=== PATIENT | female | born 1980 | race Caucasian/White ===

== ENCOUNTER 2016-11-24 08:04 | Emergency (ER) | payer OTHER ==
[2016-11-24 08:13] VITALS: BP 124/75; BMI 39.2
--- NOTE | 2016-11-24 08:39 | DR.GENAD ---
HPI - PCP Primary Care Physician: kimber das - HPI Comment HPI Comment: PATIENT IS WEAK, DRAIN OF ENERGY DIZZY. NO FEVER OR DYSURIA. - Complaint/Symptoms Chief Complaint Doctors Comments: ABDOMINAL PAIN, NAUSEA, VOMITING TIMES ON DAY. Chief Complaint:: vomiting, weak since yesterday - Nurses notes reviewed Nurses Notes Review: Yes - Mode of Arrival Mode of Arrival: Ambulatory - Timing Onset of Chief Complaint: 11/23/16 Came on: Suddenly - Duration Duration: Constant Duration: Days - Severity Severity: Moderate PMH - PMH Past Medical History: No Past Surgical History: Yes Surgical History: Appendectomy, Cholecystectomy, Tonsillectomy - Family History History of Family Medical Conditions: Yes Family Medical History: Hypertension - Social History Does patient currently use any type of tobacco product: No Have you used tobacco products in the last 12 months: No Type of Tobacco Use: None Does any household member use tobacco: No Alcohol Use: None Do you use any recreational Drugs:: No Lives With: Family Lives Where: Home - infectious screening In the last 2 months have you had wt loss of >10#?: NO Have you had fever, night sweats or hemotysis?: No Have you traveled outside the country in the last 6 months?: No Isolation: Standard ROS - Review of Systems Constitutional: No Symptoms Reported Eyes: No Symptoms Reported ENTM: No Symptoms Reported Respiratoy: No Symptoms Reported Cardiovascular: No Symptoms Reported Gastrointestinal/Abdominal: Abdominal Pain, Nausea, Vomiting Genitourinary: No Symptoms Reported Neurological: No Symptoms Reported Musculoskeletal: No Symptoms Reported Integumentary: Dryness Hematologic/Lymphatic: No Symptoms Reported Endocrine: No Symptoms Reported All Other Systems: Reviewed and Negative PE - Vital Signs Vitals: Temperature 98.4 F Pulse Rate 71 Respiratory Rate 16 Blood Pressure 124/75 O2 Sat by Pulse Oximetry 100 - General Limitations: No Limitations General Appearance: Alert - Head Head Exam: Normal Inspection - Eyes Eye exam: Normal Appearance - ENT ENT Exam: Normal External Ear Exam External Ear Exam: Normal External Inspection TM/Canal Exam: Bilateral Normal Nose Exam: Normal Nose Exam Mouth Exam: Normal Inspection Throat Exam: Normal Inspection - Neck Neck Exam: Normal Inspection - Chest Chest Inspection: Symmetric Chest Wall Rise - Respiratory Respiratory Exam: Normal Lung Sounds Bilat Respiratory Exam: Bilateral Clear to Auscultation - Cardiovascular Cardiovascular Exam: Regular Rate, Normal Rhythm, Normal Heart Sounds - Abdominal Exam Abdominal Exam: Normal Bowel Sounds, Soft, Tenderness Abdominal Tenderness: Diffuse, Moderate - Extremities Extremities Exam: Normal Inspection - Back Back Exam: Normal Inspection - Neurologic Neurological Exam: Alert, Oriented X3 - Psychiatric Psychiatric Exam: Anxious - Skin Skin Exam: Dry MDM - Differential Diagnosis Differential Diagnosis: ABDOMINAL PAIN, DEHYDRATION, GASTROENTERITIS, UTI Course - Treatment Treatment: SEE ORDERS. - Education/Counseling Education/Counseling: Patient, Education Educated On: Treatment, Diagnosis, Needs for Follow Up ROR - Labs Reviewed Laboratory Results Reviewed?: Yes Result Diagrams: 11/24/16 08:57 11/24/16 08:57 Laboratory: WBC 10.4 X10^3/uL (3.6-10.0) H 11/24/16 08:57 RBC 4.86 X10^6/uL (3.5-5.4) 11/24/16 08:57 Hgb 13.6 g/dL (12.0-16.0) 11/24/16 08:57 Hct 40.9 % (36.0-47.0) 11/24/16 08:57 MCV 84.3 fL (80.0-100.0) 11/24/16 08:57 MCH 28.1 pg (27.0-34.0) 11/24/16 08:57 MCHC 33.3 g/dL (33.0-35.0) 11/24/16 08:57 RDW 13.7 % (11.6-16.5) 11/24/16 08:57 Plt Count 189 X10^3/uL (150.0-450.0) 11/24/16 08:57 MPV 9.2 fL (7.4-11.0) 11/24/16 08:57 Neut % 70.6 % (42.0-75.0) 11/24/16 08:57 Lymph % 20.0 % (21.0-51.0) L 11/24/16 08:57 [place] % 6.7 % (0.0-13.0) 11/24/16 08:57 Eos % 2.3 % (0.9-2.9) 11/24/16 08:57 Baso % 0.4 % (0.2-1.0) 11/24/16 08:57 Neut # 7.4 x10^3/uL (2.2-4.8) H 11/24/16 08:57 Lymph # 2.1 X10^3/uL (1.3-2.9) 11/24/16 08:57 [place] # 0.7 x10^3/uL (0.3-0.8) 11/24/16 08:57 Eos # 0.2 x10^3/uL (0.0-0.2) 11/24/16 08:57 Baso # 0.0 X10^3/uL (0.0-0.1) 11/24/16 08:57 Absolute Nucleated RBC 0.0 /100WBC 11/24/16 08:57 Sodium 141 mmol/L (136-145) 11/24/16 08:57 Corrected Sodium TNP 11/24/16 08:57 Potassium 4.0 mmol/L (3.5-5.1) 11/24/16 08:57 Chloride 104 mmol/L (98-107) 11/24/16 08:57 Carbon Dioxide 28.7 mmol/L (21-32) 11/24/16 08:57 BUN 18 mg/dL (7-18) 11/24/16 08:57 Creatinine 0.93 mg/dL (0.55-1.02) 11/24/16 08:57 Est GFR (MDRD) Af Amer > 60 (>60) 11/24/16 08:57 Est GFR (MDRD) Non-Af > 60 (>60) 11/24/16 08:57 Glucose 90 mg/dL (65-99) 11/24/16 08:57 Calcium 8.5 mg/dL (8.5-10.1) 11/24/16 08:57 Corrected Calcium TNP 11/24/16 08:57 Total Bilirubin 0.30 mg/dL (0.2-1.0) 11/24/16 08:57 AST 17 Units/L (15-37) 11/24/16 08:57 ALT 30 Units/L (12-78) 11/24/16 08:57 Alkaline Phosphatase 51 Units/L (46-116) 11/24/16 08:57 Total Protein 6.9 g/dL (6.4-8.2) 11/24/16 08:57 Albumin 3.6 g/dL (3.4-5.0) 11/24/16 08:57 Globulin 3.3 g/dL (2.5-4.5) 11/24/16 08:57 Albumin/Globulin Ratio 1.1 Ratio (1.1-2.1) 11/24/16 08:57 Amylase 46 Units/L (25-115) 11/24/16 08:57 Lipase 110 Units/L (73-393) 11/24/16 08:57 HCG, Qual Negative <10 mIU/mL 11/24/16 08:57 Specimen Type Clean catch urine 11/24/16 08:53 Urine Color Yellow (YELLOW) 11/24/16 08:53 Urine Appearance Slightly hazy (CLEAR) 11/24/16 08:53 Urine pH 5.0 (5.0 - 8.0) 11/24/16 08:53 Ur Specific [place] 1.015 (1.000-1.030) 11/24/16 08:53 Urine Protein Negative (NEGATIVE) 11/24/16 08:53 Urine Glucose (UA) Negative (NEGATIVE) 11/24/16 08:53 Urine Ketones Negative (NEGATIVE) 11/24/16 08:53 Urine Occult Blood 2+ (NEGATIVE) 11/24/16 08:53 Urine Nitrite Negative (NEGATIVE) 11/24/16 08:53 Urine Bilirubin Negative (NEGATIVE) 11/24/16 08:53 Urine Urobilinogen Normal (NORMAL) 11/24/16 08:53 Ur Leukocyte Esterase Negative (NEGATIVE) 11/24/16 08:53 Urine RBC 0-3 /HPF (NEGATIVE) 11/24/16 08:53 Urine WBC 2-5 /HPF (NEGATIVE) 11/24/16 08:53 Ur Squamous Epith Cells Moderate /HPF (NEGATIVE) 11/24/16 08:53 Urine Bacteria Trace /HPF (NEGATIVE) 11/24/16 08:53 Ur Culture Indicated? No/not indicated 11/24/16 08:53 - XRAY XRAY Interpreted by: Radiologist XRAY Findings: DISCUSS REPORT WITH PATIENT. - Diagnosis Discharge Problem: Gastroenteritis, Dehydration - Discharge Plan Disposition: HOME, SELF-CARE Condition: Stable Prescriptions: Dicyclomine HCl [Bentyl tab 20 mg] 20 mg PO TID PRN #15 tab PRN Reason: Ondansetron HCl [Zofran Tab 4 mg] 4 mg PO Q8H PRN #12 tab PRN Reason: Nausea/Vomiting - Follow ups/Referrals Follow ups/Referrals: KIMBER DAS [Primary Care Provider] - 2 days - Instructions Instructions: Viral Gastroenteritis, Adult, Caoo-[id number], Dehydration, Adult, [id number] Additional Instructions: RETURN TO ED IF WORSE.
[2016-11-24] MEDS ORDERED: ZOFRAN INJ 4 MG VIAL IVP ONE (08:40)
[2016-11-24] MEDS ORDERED: NS 1000 ML 1,000 ML IV ONE (08:40)
[2016-11-24] MEDS ORDERED: ZOFRAN INJ 4 MG VIAL ONE (08:49)
[2016-11-24] MEDS ORDERED: NS 1000 ML 1,000 ML ONE (08:49)
[2016-11-24 09:12] LABS: BASOPHILS % (AUTO) 0.4 % (0.2-1.0); EOSINOPHILS # (AUTO) 0.2 x10^3/uL (0.0-0.2); EOSINOPHILS % (AUTO) 2.3 % (0.9-2.9); HEMATOCRIT 40.9 % (36.0-47.0); HEMOGLOBIN 13.6 g/dL (12.0-16.0); LYMPHOCYTES # (AUTO) 2.1 X10^3/uL (1.3-2.9); MEAN CORPUSCULAR HEMOGLOBIN 28.1 pg (27.0-34.0); MEAN CORPUSCULAR HGB CONC 33.3 g/dL (33.0-35.0); MEAN CORPUSCULAR VOLUME 84.3 fL (80.0-100.0); MEAN PLATELET VOLUME 9.2 fL (7.4-11.0); MONOCYTES # (AUTO) 0.7 x10^3/uL (0.3-0.8); MONOCYTES % (AUTO) 6.7 % (0.0-13.0); NEUTROPHILS # (AUTO) 7.4 x10^3/uL (2.2-4.8); NEUTROPHILS % (AUTO) 70.6 % (42.0-75.0); PLATELET COUNT 189 X10^3/uL (150.0-450.0); RED BLOOD COUNT 4.86 X10^6/uL (3.5-5.4); RED CELL DISTRIBUTION WIDTH 13.7 % (11.6-16.5); WHITE BLOOD COUNT 10.4 X10^3/uL (3.6-10.0)
[2016-11-24 09:15] LABS: BILIRUBIN,URINE NEGATIVE (NEGATIVE); BLOOD/HEMOGLOBIN,URINE 2+ (NEGATIVE); GLUCOSE, URINE NEGATIVE (NEGATIVE); KETONES,URINE NEGATIVE (NEGATIVE); LEUKOCYTE ESTERASE ,URINE NEGATIVE (NEGATIVE); NITRITES,URINE NEGATIVE (NEGATIVE); PROTEIN,URINE NEGATIVE (NEGATIVE); UROBILINOGEN,URINE NORMAL (NORMAL)
[2016-11-24 09:18] LABS: ALANINE AMINOTRANSFERASE 30 Units/L (12-78); ALBUMIN 3.6 g/dL (3.4-5.0); ALKALINE PHOSPHATASE 51 Units/L (46-116); AMYLASE 46 Units/L (25-115); ASPARTATE AMINO TRANSFERASE 17 Units/L (15-37); BLOOD UREA NITROGEN 18 mg/dL (7-18); CALCIUM 8.5 mg/dL (8.5-10.1); CARBON DIOXIDE 28.7 mmol/L (21-32); CHLORIDE 104 mmol/L (98-107); CREATININE 0.93 mg/dL (0.55-1.02); GLUCOSE 90 mg/dL (65-99); LIPASE 110 Units/L (73-393); SODIUM 141 mmol/L (136-145); TOTAL PROTEIN 6.9 g/dL (6.4-8.2); eGFR BLACK RACES > 60 (>60); eGFR NON BLACK RACES > 60 (>60)
[2016-11-24 09:23] LABS: APPEARANCE,URINE SLIGHTLY HAZY (CLEAR); COLOR,URINE YELLOW (YELLOW)
[2016-11-24 09:24] LABS: BACTERIA,URINE TRACE /HPF (NEGATIVE); RBC,URINE 0-3 /HPF (NEGATIVE); SQUAMOUS EPITHELIAL CELL,UR MODERATE /HPF (NEGATIVE)
[2016-11-24 09:25] LABS: SERUM PREGNANCY TEST, QUAL NEGATIVE <10 mIU/mL
--- NOTE | 2016-11-24 10:25 | RAD ---
HISTORY: Abdominal pain common nausea, vomiting Study: Acute abdominal series Comparison: None Findings: The trachea is midline. The cardiac silhouette is unremarkable. The lungs are clear without focal infiltrate or effusion. The bony thorax is unremarkable. Flat plate and upright evaluation of the abdomen demonstrates a normal bowel gas pattern. No pneumop eritoneum is identified.. No pathological soft tissue mass or calcification can be observed. The b zuleika structures are grossly intact. IMPRESSION: 1. No acute cardiopulmonary disease. 2. No evidence for acute abdominal pathology identified. Reported By:
== END 2016-11-24 10:25 | disposition home or self-care (01) ==
LOC: ER 08:21
DX: K52.89 Other specified noninfective gastroenteritis and colitis (principal); E86.0 Dehydration
CPT/HCPCS: 36415; 74022; 80053; 81001; 82150; 83690; 84703; 85025; 96365; 96374; 99282; 99283; A4222; J2405

== ENCOUNTER 2017-02-10 08:56 | Emergency (ER) | payer SELFPAY ==
[2017-02-10 09:02] VITALS: BP 127/75; BMI 37.8
--- NOTE | 2017-02-10 09:29 | DR.GENAD ---
HPI - PCP Primary Care Physician: Michelle Gomez - Complaint/Symptoms Chief Complaint Doctors Comments: Nausea, vomiting and diarrhea for 4 days. Chief Complaint:: N/V real weak feels like im going to pass out been sick for three or four days - Nurses notes reviewed Nurses Notes Review: Yes - Source History Provided: Patient - Mode of Arrival Mode of Arrival: Ambulatory - Timing Onset of Chief Complaint: 02/07/17 Came on: Gradually - Duration Duration: Intermittent PMH - PMH Past Medical History: Yes Past Medical History: GERD Past Surgical History: Yes Surgical History: Appendectomy, Cholecystectomy, Tonsillectomy Unable to Obtain Due To: denies: Altered mental status, Dementia, Medical urgency, Intubated - Family History History of Family Medical Conditions: Yes Family Medical History: Hypertension - Social History Does patient currently use any type of tobacco product: No Have you used tobacco products in the last 12 months: No Type of Tobacco Use: None Does any household member use tobacco: No Alcohol Use: None Do you use any recreational Drugs:: No Lives With: Family Lives Where: Home - infectious screening In the last 2 months have you had wt loss of >10#?: NO Have you had fever, night sweats or hemotysis?: No Have you traveled outside the country in the last 6 months?: No Isolation: Standard ROS - Review of Systems Constitutional: Weakness Eyes: No Symptoms Reported ENTM: No Symptoms Reported Respiratoy: No Symptoms Reported Cardiovascular: No Symptoms Reported Gastrointestinal/Abdominal: Diarrhea, Nausea, Vomiting Genitourinary: No Symptoms Reported Neurological: No Symptoms Reported Musculoskeletal: No Symptoms Reported Integumentary: No Symptoms Reported Hematologic/Lymphatic: No Symptoms Reported Endocrine: No Symptoms Reported Psychiatric: No Symptoms Reported All Other Systems: Reviewed and Negative PE - Vital Signs Vitals: Temperature 98.1 F Pulse Rate 70 Respiratory Rate 18 Blood Pressure 127/75 O2 Sat by Pulse Oximetry 98 - Head Head Exam: Normal Inspection - Eyes Eye exam: Normal Appearance - ENT ENT Exam: Normal Oropharynx, Normal External Ear Exam, Mucous Membranes Moist. negative: Mucous Membranes Dry, Other External Ear Exam: Normal External Inspection Nose Exam: Normal Nose Exam Mouth Exam: Normal Inspection Throat Exam: Normal Inspection - Neck Neck Exam: Normal Inspection - Chest Chest Inspection: Normal Inspection - Respiratory Respiratory Exam: Normal Lung Sounds Bilat - Cardiovascular Cardiovascular Exam: Regular Rate, Normal Rhythm, Normal Heart Sounds - Abdominal Exam Abdominal Exam: Normal Inspection, Normal Bowel Sounds, Soft, Tenderness (r sided). negative: Distention, Rebound, Rigidity, Dimnished Bowel Sounds, Hyperactive Bowel Sounds, Hypoactive Bowel Sounds, Organomegaly, Trauma, Incision, Ascites, Mass, Bruit, Pulsatile Mass, Hernia Abdominal Tenderness: RUQ, Mild - Extremities Extremities Exam: Normal Inspection - Back Back Exam: Normal Inspection - Neurologic Neurological Exam: Alert, Oriented X3, CN II-XII Intact, Normal Gait - Psychiatric Psychiatric Exam: Normal Affect, Normal Mood - Skin Skin Exam: Warm, Dry, Intact, Normal Color MDM - Differential Diagnosis Differential Diagnosis: gastroenteritis,post cholecystectomy dumping syndrome. ROR - Labs Reviewed Result Diagrams: 02/10/17 09:51 02/10/17 09:51 Laboratory: WBC 7.8 X10^3/uL (3.6-10.0) 02/10/17 09:51 RBC 4.72 X10^6/uL (3.5-5.4) 02/10/17 09:51 Hgb 13.4 g/dL (12.0-16.0) 02/10/17 09:51 Hct 39.7 % (36.0-47.0) 02/10/17 09:51 MCV 84.0 fL (80.0-100.0) 02/10/17 09:51 MCH 28.5 pg (27.0-34.0) 02/10/17 09:51 MCHC 33.9 g/dL (33.0-35.0) 02/10/17 09:51 RDW 13.4 % (11.6-16.5) 02/10/17 09:51 Plt Count 162 X10^3/uL (150.0-450.0) 02/10/17 09:51 MPV 10.0 fL (7.4-11.0) 02/10/17 09:51 Neut % 71.2 % (42.0-75.0) 02/10/17 09:51 Lymph % 21.0 % (21.0-51.0) 02/10/17 09:51 [place] % 6.7 % (0.0-13.0) 02/10/17 09:51 Eos % 0.8 % (0.9-2.9) L 02/10/17 09:51 Baso % 0.3 % (0.2-1.0) 02/10/17 09:51 Neut # 5.6 x10^3/uL (2.2-4.8) H 02/10/17 09:51 Lymph # 1.7 X10^3/uL (1.3-2.9) 02/10/17 09:51 [place] # 0.5 x10^3/uL (0.3-0.8) 02/10/17 09:51 Eos # 0.1 x10^3/uL (0.0-0.2) 02/10/17 09:51 Baso # 0.0 X10^3/uL (0.0-0.1) 02/10/17 09:51 Absolute Nucleated RBC 0.1 /100WBC 02/10/17 09:51 Sodium 144 mmol/L (136-145) 02/10/17 09:51 Corrected Sodium TNP 02/10/17 09:51 Potassium 3.7 mmol/L (3.5-5.1) 02/10/17 09:51 Chloride 107 mmol/L (98-107) 02/10/17 09:51 Carbon Dioxide 30.4 mmol/L (21-32) 02/10/17 09:51 BUN 8 mg/dL (7-18) 02/10/17 09:51 Creatinine 0.98 mg/dL (0.55-1.02) 02/10/17 09:51 Est GFR (MDRD) Af Amer > 60 (>60) 02/10/17 09:51 Est GFR (MDRD) Non-Af > 60 (>60) 02/10/17 09:51 Glucose 97 mg/dL (65-99) 02/10/17 09:51 Calcium 8.3 mg/dL (8.5-10.1) L 02/10/17 09:51 Corrected Calcium TNP 02/10/17 09:51 Total Bilirubin 0.50 mg/dL (0.2-1.0) 02/10/17 09:51 AST 15 Units/L (15-37) 02/10/17 09:51 ALT 19 Units/L (12-78) 02/10/17 09:51 Alkaline Phosphatase 45 Units/L (46-116) L 02/10/17 09:51 Total Protein 6.7 g/dL (6.4-8.2) 02/10/17 09:51 Albumin 3.6 g/dL (3.4-5.0) 02/10/17 09:51 Globulin 3.1 g/dL (2.5-4.5) 02/10/17 09:51 Albumin/Globulin Ratio 1.2 Ratio (1.1-2.1) 02/10/17 09:51 Amylase 31 Units/L (25-115) 02/10/17 09:51 H. pylori IgG Antibody Positive (NEGATIVE) A 02/10/17 09:51 - Diagnosis Discharge Problem: Helicobacter pylori antibody positive, H. pylori duodenitis - Discharge Plan Disposition: 01 HOME, SELF-CARE Condition: Stable - Follow ups/Referrals Follow ups/Referrals: RODRIGO GOMEZ [Primary Care Provider] - 3 days - Instructions Instructions: Gastritis, Adult, [id number], Gastritis, Adult
[2017-02-10] MEDS ORDERED: PROTONIX TAB 40 MG PO ONE ×2 (09:42→10:01)
[2017-02-10] MEDS ORDERED: ZOFRAN TAB 4 MG PO ONE (09:46)
[2017-02-10] MEDS ORDERED: ZOFRAN TAB 4 MG ONE (10:01)
[2017-02-10 10:09] LABS: ALANINE AMINOTRANSFERASE 19 Units/L (12-78); ALBUMIN 3.6 g/dL (3.4-5.0); ALKALINE PHOSPHATASE 45 Units/L (46-116); AMYLASE 31 Units/L (25-115); ASPARTATE AMINO TRANSFERASE 15 Units/L (15-37); BLOOD UREA NITROGEN 8 mg/dL (7-18); CALCIUM 8.3 mg/dL (8.5-10.1); CARBON DIOXIDE 30.4 mmol/L (21-32); CHLORIDE 107 mmol/L (98-107); CREATININE 0.98 mg/dL (0.55-1.02); GLUCOSE 97 mg/dL (65-99); SODIUM 144 mmol/L (136-145); TOTAL PROTEIN 6.7 g/dL (6.4-8.2); eGFR BLACK RACES > 60 (>60); eGFR NON BLACK RACES > 60 (>60)
--- NOTE | 2017-02-10 10:12 | RAD ---
HISTORY: Nausea, vomiting, diarrhea Study: Acute abdominal series Comparison: November 24, 2016 Findings: The trachea is midline. The cardiac silhouette is unremarkable. The lungs are clear without focal infiltrate or effusion. The bony thorax is unremarkable. Flat plate and upright evaluation of the abdomen demonstrates a normal bowel gas pattern. No pneumop eritoneum is identified.. No pathological soft tissue mass or calcification can be observed. The b zuleika structures are grossly intact. The patient appears to be status post ventral hernia repair and c holecystectomy. IMPRESSION: 1. No acute cardiopulmonary disease. 2. No evidence for acute abdominal pathology identified. Reported By:
[2017-02-10 10:14] LABS: BASOPHILS % (AUTO) 0.3 % (0.2-1.0); EOSINOPHILS # (AUTO) 0.1 x10^3/uL (0.0-0.2); EOSINOPHILS % (AUTO) 0.8 % (0.9-2.9); HEMATOCRIT 39.7 % (36.0-47.0); HEMOGLOBIN 13.4 g/dL (12.0-16.0); LYMPHOCYTES # (AUTO) 1.7 X10^3/uL (1.3-2.9); MEAN CORPUSCULAR HEMOGLOBIN 28.5 pg (27.0-34.0); MEAN CORPUSCULAR HGB CONC 33.9 g/dL (33.0-35.0); MONOCYTES # (AUTO) 0.5 x10^3/uL (0.3-0.8); MONOCYTES % (AUTO) 6.7 % (0.0-13.0); NEUTROPHILS # (AUTO) 5.6 x10^3/uL (2.2-4.8); NEUTROPHILS % (AUTO) 71.2 % (42.0-75.0); PLATELET COUNT 162 X10^3/uL (150.0-450.0); RED BLOOD COUNT 4.72 X10^6/uL (3.5-5.4); RED CELL DISTRIBUTION WIDTH 13.4 % (11.6-16.5); WHITE BLOOD COUNT 7.8 X10^3/uL (3.6-10.0)
== END 2017-02-10 10:41 | disposition home or self-care (01) ==
LOC: ER 09:04
DX: K29.70 Gastritis, unspecified, without bleeding (principal); B96.81 Helicobacter pylori [H. pylori] as the cause of diseases classified elsewhere
CPT/HCPCS: 36415; 74022; 80053; 82150; 85025; 86677; 99282; S0181

== ENCOUNTER 2017-07-29 09:34 | Emergency (ER) | payer SELFPAY ==
[2017-07-29 09:38] VITALS: BP 129/74; BMI 36.2
[2017-07-29 10:05] LABS: BILIRUBIN,URINE NEGATIVE (NEGATIVE); BLOOD/HEMOGLOBIN,URINE 2+ (NEGATIVE); GLUCOSE, URINE NEGATIVE (NEGATIVE); KETONES,URINE NEGATIVE (NEGATIVE); LEUKOCYTE ESTERASE ,URINE NEGATIVE (NEGATIVE); NITRITES,URINE NEGATIVE (NEGATIVE); PROTEIN,URINE NEGATIVE (NEGATIVE); UROBILINOGEN,URINE NORMAL (NORMAL)
[2017-07-29 10:10] LABS: APPEARANCE,URINE CLEAR (CLEAR); BACTERIA,URINE TRACE /HPF (NEGATIVE); COLOR,URINE YELLOW (YELLOW); RBC,URINE 0-2 /HPF (NEGATIVE); SQUAMOUS EPITHELIAL CELL,UR FEW /HPF (NEGATIVE)
[2017-07-29 10:11] LABS: BASOPHILS % (AUTO) 0.3 % (0.2-1.0); EOSINOPHILS # (AUTO) 0.1 x10^3/uL (0.0-0.2); EOSINOPHILS % (AUTO) 0.9 % (0.9-2.9); HEMATOCRIT 40.3 % (36.0-47.0); HEMOGLOBIN 13.5 g/dL (12.0-16.0); LYMPHOCYTES # (AUTO) 1.7 X10^3/uL (1.3-2.9); LYMPHOCYTES % (AUTO) 18.6 % (21.0-51.0); MEAN CORPUSCULAR HEMOGLOBIN 28.1 pg (27.0-34.0); MEAN CORPUSCULAR HGB CONC 33.5 g/dL (33.0-35.0); MEAN CORPUSCULAR VOLUME 83.9 fL (80.0-100.0); MEAN PLATELET VOLUME 9.5 fL (7.4-11.0); MONOCYTES # (AUTO) 0.6 x10^3/uL (0.3-0.8); MONOCYTES % (AUTO) 6.5 % (0.0-13.0); NEUTROPHILS # (AUTO) 6.8 x10^3/uL (2.2-4.8); NEUTROPHILS % (AUTO) 73.7 % (42.0-75.0); PLATELET COUNT 180 X10^3/uL (150.0-450.0); RED BLOOD COUNT 4.81 X10^6/uL (3.5-5.4); RED CELL DISTRIBUTION WIDTH 13.2 % (11.6-16.5); WHITE BLOOD COUNT 9.2 X10^3/uL (3.6-10.0)
--- NOTE | 2017-07-29 10:16 | DR.URINEF ---
HPI - Time Seen Time seen: 09:58 - PCP Primary Care Physician: carlos - Complaint Chief Complaint Doctors Comments: Lt. flank + groin pain since yesterday. Other symptoms include: dysuria, urgency and nausea. She did vomit x 1 today. She denies hematuria. Chief Complaint:: Patient c/o left flank pain with nausea. Patient has urinary urgency and hesitency. Patient states she also has dysuria. 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 - Reviewed Nurses Notes Reviewed: Yes - Source History Provided: Patient - Mode of Arrival Mode of Arrival: Ambulatory - Timing Onset of Chief Complaint: 07/28/17 - Context History of: None - Quality Pain is: Aching - Severity Pain: Moderate - Associated Signs and Symptoms Associated signs and symptoms: Nausea, Vomiting, Flank Pain PMH - PMH Past Medical History: Yes Past Medical History: GERD Past Surgical History: Yes Surgical History: Appendectomy, Cholecystectomy, Tonsillectomy Past Surgical History Comment: Umbilical hernia repair - Family History History of Family Medical Conditions: Yes Family Medical History: Diabetes Mellitus, Hypertension - Social History Does patient currently use any type of tobacco product: No Have you used tobacco products in the last 12 months: No Type of Tobacco Use: None Does any household member use tobacco: No Alcohol Use: None Do you use any recreational Drugs:: No Lives With: Family Lives Where: Home - infectious screening In the last 2 months have you had wt loss of >10#?: NO Have you had fever, night sweats or hemotysis?: No Have you traveled outside the country in the last 6 months?: No Isolation: Standard ROS - Review of Systems Constitutional: No Symptoms Reported Eyes: No Symptoms Reported ENTM: No Symptoms Reported Respiratoy: No Symptoms Reported Cardiovascular: No Symptoms Reported Gastrointestinal/Abdominal: Nausea, Vomiting Genitourinary: Dysuria, Other (Lt. flank pain and urgency.) Neurological: No Symptoms Reported Musculoskeletal: No Symptoms Reported Integumentary: No Symptoms Reported Hematologic/Lymphatic: No Symptoms Reported Endocrine: No Symptoms Reported Psychiatric: No Symptoms Reported All Other Systems: Reviewed and Negative PE - Vital Signs Vitals: Temperature 97.4 F Pulse Rate 79 Respiratory Rate 19 Blood Pressure 129/74 O2 Sat by Pulse Oximetry 98 - General Limitations: No Limitations General Appearance: Alert, In No Apparent Distress - Head Head Exam: Normal Inspection, Atraumatic, Normocephalic - Eyes Eye exam: Normal Appearance - ENT ENT Exam: Normal Exam - Neck Neck Exam: Normal Inspection, Full ROM, Trachea Midline - Chest Chest Inspection: Normal Inspection, Symmetric Chest Wall Rise - Respiratory Respiratory Exam: Normal Lung Sounds Bilat - Cardiovascular Cardiovascular Exam: Regular Rate, Normal Rhythm - Abdominal Exam Abdominal Exam: Normal Inspection, Normal Bowel Sounds, Soft, Tenderness Abdominal Tenderness: LLQ, Suprapubic - Rectal Rectal Exam: Deferred - Genitourinary External Exam: Female: Deferred : Speculum Exam (Female): Deferred - Extremities Extremities Exam: Normal Inspection, Full ROM - Back Back Exam: (L) CVA Tenderness - Neurologic Neurological Exam: Alert, Oriented X3, CN II-XII Intact - Psychiatric Psychiatric Exam: Normal Affect, Normal Mood - Skin Skin Exam: Warm, Dry, Intact ROR - Labs Reviewed Result Diagrams: 07/29/17 10:05 07/29/17 10:05 Laboratory: WBC 9.2 X10^3/uL (3.6-10.0) 07/29/17 10:05 RBC 4.81 X10^6/uL (3.5-5.4) 07/29/17 10:05 Hgb 13.5 g/dL (12.0-16.0) 07/29/17 10:05 Hct 40.3 % (36.0-47.0) 07/29/17 10:05 MCV 83.9 fL (80.0-100.0) 07/29/17 10:05 MCH 28.1 pg (27.0-34.0) 07/29/17 10:05 MCHC 33.5 g/dL (33.0-35.0) 07/29/17 10:05 RDW 13.2 % (11.6-16.5) 07/29/17 10:05 Plt Count 180 X10^3/uL (150.0-450.0) 07/29/17 10:05 MPV 9.5 fL (7.4-11.0) 07/29/17 10:05 Neut % 73.7 % (42.0-75.0) 07/29/17 10:05 Lymph % 18.6 % (21.0-51.0) L 07/29/17 10:05 [place] % 6.5 % (0.0-13.0) 07/29/17 10:05 Eos % 0.9 % (0.9-2.9) 07/29/17 10:05 Baso % 0.3 % (0.2-1.0) 07/29/17 10:05 Neut # 6.8 x10^3/uL (2.2-4.8) H 07/29/17 10:05 Lymph # 1.7 X10^3/uL (1.3-2.9) 07/29/17 10:05 [place] # 0.6 x10^3/uL (0.3-0.8) 07/29/17 10:05 Eos # 0.1 x10^3/uL (0.0-0.2) 07/29/17 10:05 Baso # 0.0 X10^3/uL (0.0-0.1) 07/29/17 10:05 Absolute Nucleated RBC 0.0 /100WBC 07/29/17 10:05 Sodium 141 mmol/L (136-145) 07/29/17 10:05 Corrected Sodium TNP 07/29/17 10:05 Potassium 3.8 mmol/L (3.5-5.1) 07/29/17 10:05 Chloride 105 mmol/L (98-107) 07/29/17 10:05 Carbon Dioxide 29.7 mmol/L (21-32) 07/29/17 10:05 BUN 9 mg/dL (7-18) 07/29/17 10:05 Creatinine 0.90 mg/dL (0.55-1.02) 07/29/17 10:05 Est GFR (MDRD) Af Amer > 60 (>60) 07/29/17 10:05 Est GFR (MDRD) Non-Af > 60 (>60) 07/29/17 10:05 Glucose 98 mg/dL (65-99) 07/29/17 10:05 Calcium 8.5 mg/dL (8.5-10.1) 07/29/17 10:05 Specimen Type Clean catch urine 07/29/17 09:59 Urine Color Yellow (YELLOW) 07/29/17 09:59 Urine Appearance Clear (CLEAR) 07/29/17 09:59 Urine pH 6.0 (5.0 - 8.0) 07/29/17 09:59 Ur Specific [place] 1.015 (1.000-1.030) 07/29/17 09:59 Urine Protein Negative (NEGATIVE) 07/29/17 09:59 Urine Glucose (UA) Negative (NEGATIVE) 07/29/17 09:59 Urine Ketones Negative (NEGATIVE) 07/29/17 09:59 Urine Occult Blood 2+ (NEGATIVE) 07/29/17 09:59 Urine Nitrite Negative (NEGATIVE) 07/29/17 09:59 Urine Bilirubin Negative (NEGATIVE) 07/29/17 09:59 Urine Urobilinogen Normal (NORMAL) 07/29/17 09:59 Ur Leukocyte Esterase Negative (NEGATIVE) 07/29/17 09:59 Urine RBC 0-2 /HPF (NEGATIVE) 07/29/17 09:59 Urine WBC 0-2 /HPF (NEGATIVE) 07/29/17 09:59 Ur Squamous Epith Cells Few /HPF (NEGATIVE) 07/29/17 09:59 Urine Bacteria Trace /HPF (NEGATIVE) 07/29/17 09:59 Ur Culture Indicated? No/not indicated 07/29/17 09:59 - XRAY XRAY Interpreted by: Radiologist (CT Abd/Pelvis: bilateral adnexal cysts ) - Diagnosis Discharge Problem: Flank pain, Adnexal cyst, Pelvic pain - Discharge Plan Disposition: 01 HOME, SELF-CARE Condition: Stable - Follow ups/Referrals Follow ups/Referrals: RAMESH ANDUJAR [Primary Care Provider] - 3 days - Instructions
[2017-07-29] MEDS ORDERED: TORADOL 30 MG VIAL IVP ONE (10:18)
[2017-07-29] MEDS ORDERED: NS 1000 ML 1,000 ML IV ONE (10:18)
[2017-07-29] MEDS ORDERED: NS 1000 ML 1,000 ML ONE (10:20)
[2017-07-29] MEDS ORDERED: TORADOL 30 MG VIAL ONE (10:20)
[2017-07-29 10:25] LABS: BLOOD UREA NITROGEN 9 mg/dL (7-18); CALCIUM 8.5 mg/dL (8.5-10.1); CARBON DIOXIDE 29.7 mmol/L (21-32); CHLORIDE 105 mmol/L (98-107); SODIUM 141 mmol/L (136-145); eGFR BLACK RACES > 60 (>60); eGFR NON BLACK RACES > 60 (>60)
--- NOTE | 2017-07-29 11:47 | CT ---
CT ABDOMEN AND PELVIS WITHOUT CONTRAST CLINICAL HISTORY: 36-year-old female with left flank pain and nausea. COMPARISON: CT abdomen and pelvis 06/25/2016. TECHNIQUE: Multiple contiguous computed tomographic axial images of the abdomen and pelvis were obtai becky without the use of oral or intravenous contrast. Images were reformatted in the coronal and sagit vilma planes. FINDINGS: The lung bases demonstrate no evidence of focal air-space opacification, pleural effusion, pneumothor ax, or suspicious pulmonary nodules. The imaged inferior mediastinum and heart are normal in appeara nce without evidence of pericardial effusion. The liver, pancreas, and spleen are within normal limits for noncontrast imaging. Status post cholecy stectomy. Right adrenal gland is unremarkable. 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 Kidneys are unremarkable. There are no nephroureteral stones or perinephric flu id collections. There is no evidence of hydroureteronephrosis and the ureters run in an unobstructed course to a well distended urinary bladder. The uterus is anteverted and normal in size. Right adnexal cyst measuring 3.7 x 2.6 x 3.7 cm with le ft adnexal cyst measuring 3.5 x 2.2 x 4.1 cm. Adnexa unremarkable otherwise. Vagina and perineum are unremarkable. Scattered pelvic phleboliths. Stable appearance of surgical tacks and abdominal mesh for ventral hernia repair. Status post appende ctomy. The bowel is without obstruction or inflammation and there is no free fluid or free air withi n the peritoneal cavity. There are no pathologically enlarged lymph nodes in the abdomen or pelvis. The arteriovascular structures are within normal limits for a study without contrast. Soft tissues are normal. The osseous structures are intact without fracture or malalignment. IMPRESSION: 1. Bilateral adnexal cysts as described, most likely benign, but may be a source of patient's pain. F ollow-up with [employer]IST. 2. Status post appendectomy and cholecystectomy. 3. No nephroureterolithiasis. 4. No acute intra-abdominal or intrapelvic process. Reported By:
== END 2017-07-29 12:09 | disposition home or self-care (01) ==
LOC: ER 09:49
DX: R10.84 Generalized abdominal pain (principal); N83.201 Unspecified ovarian cyst, right side; R10.2 Pelvic and perineal pain
CPT/HCPCS: 36415; 74176; 80048; 81001; 85025; 96365; 96367; 96374; 99282; 99283; A4222; J1885

== ENCOUNTER 2017-10-10 09:15 | Emergency (ER) | payer SELFPAY ==
[2017-10-10 09:23] VITALS: BP 122/71; BMI 35.9
[2017-10-10 09:43] LABS: BILIRUBIN,URINE NEGATIVE (NEGATIVE); BLOOD/HEMOGLOBIN,URINE 3+ (NEGATIVE); GLUCOSE, URINE NEGATIVE (NEGATIVE); KETONES,URINE NEGATIVE (NEGATIVE); LEUKOCYTE ESTERASE ,URINE 1+ (NEGATIVE); NITRITES,URINE NEGATIVE (NEGATIVE); PROTEIN,URINE NEGATIVE (NEGATIVE); UROBILINOGEN,URINE NORMAL (NORMAL)
--- NOTE | 2017-10-10 09:52 | ED.ABDFE ---
HPI - Time seen Time seen: 09:35 - PCP Primary Care Physician: TYRONE MAHARAJ - Complaint Chief Complaint:: PT C/O BEING AT WORK TODAY AND THAT SHE STARTED HAVING SHARP PAINS TO HER LUQ AND SHE THOUGHT SHE WAS GONNA PASS OUT AND SHE WAS TOLD BY HER BOSS TO COME TO THE ER. ..BR - Source History Provided: Patient - Mode of arrival Mode of Arrival: Ambulatory - Timing Onset of Chief Complaint: 10/10/17 PMH - PMH Past Medical History: No Past Medical History: GERD Past Surgical History: Yes Surgical History: Appendectomy, Cholecystectomy, Tonsillectomy Past Surgical History Comment: UMBELICAL HERNIA . - Family History History of Family Medical Conditions: Yes Family Medical History: Diabetes Mellitus, Hypertension - Social History Does patient currently use any type of tobacco product: No Have you used tobacco products in the last 12 months: No Type of Tobacco Use: None Does any household member use tobacco: No Alcohol Use: None Do you use any recreational Drugs:: No Lives With: Family Lives Where: Home - infectious screening In the last 2 months have you had wt loss of >10#?: NO Have you had fever, night sweats or hemotysis?: No Have you traveled outside the country in the last 6 months?: No Isolation: Standard ROS - Review of Systems Eyes: No Symptoms Reported ENTM: No Symptoms Reported Respiratoy: No Symptoms Reported Cardiovascular: No Symptoms Reported Gastrointestinal/Abdominal: No Symptoms Reported Genitourinary: No Symptoms Reported Neurological: Headache Musculoskeletal: No Symptoms Reported Integumentary: No Symptoms Reported Hematologic/Lymphatic: No Symptoms Reported Endocrine: No Symptoms Reported Psychiatric: No Symptoms Reported All Other Systems: Reviewed and Negative PE - Vital Signs Vitals: Temperature 97.7 F Pulse Rate 74 Respiratory Rate 20 Blood Pressure 122/71 O2 Sat by Pulse Oximetry 99 - General Limitations: No Limitations General Appearance: Alert, In No Apparent Distress - Head Head Exam: Normal Inspection, Atraumatic - Eyes Eye exam: Normal Appearance, PERRL, EOMI - ENT ENT Exam: Normal Exam - Neck Neck Exam: Normal Inspection, Full ROM - Chest Chest Inspection: Normal Inspection - Respiratory Respiratory Exam: Normal Lung Sounds Bilat Respiratory Exam: Bilateral Clear to Auscultation - Cardiovascular Cardiovascular Exam: Regular Rate, Normal Rhythm - Abdominal Exam Abdominal Exam: Normal Inspection Abdominal Tenderness: negative: RUQ, RLQ, LUQ, LLQ, Epigastrium, Suprapubic, Diffuse, Mild, Moderate, Severe, Other - Rectal Rectal Exam: Deferred - Back Back Exam: Normal Inspection - Extremeties Extremities Exam: Normal Inspection, Full ROM - External Exam: Female: Deferred : Speculum Exam (Female): Deferred : Bimanual Exam (female): Deferred - Neurologic Neurological Exam: Alert, Oriented X3, CN II-XII Intact - Psychiatric Psychiatric Exam: Normal Affect - Skin Skin Exam: Warm, Dry, Intact Course - Education/Counseling Educated On: Treatment, Diagnosis, Prognosis, Needs for Follow Up ROR - Labs Reviewed Result Diagrams: 10/10/17 09:47 10/10/17 09:47 Laboratory: WBC 8.0 X10^3/uL (3.6-10.0) 10/10/17 09:47 RBC 4.69 X10^6/uL (3.5-5.4) 10/10/17 09:47 Hgb 13.3 g/dL (12.0-16.0) 10/10/17 09:47 Hct 39.0 % (36.0-47.0) 10/10/17 09:47 MCV 83.1 fL (80.0-100.0) 10/10/17 09:47 MCH 28.4 pg (27.0-34.0) 10/10/17 09:47 MCHC 34.2 g/dL (33.0-35.0) 10/10/17 09:47 RDW 13.5 % (11.6-16.5) 10/10/17 09:47 Plt Count 174 X10^3/uL (150.0-450.0) 10/10/17 09:47 MPV 9.8 fL (7.4-11.0) 10/10/17 09:47 Neut % 69.0 % (42.0-75.0) 10/10/17 09:47 Lymph % 22.3 % (21.0-51.0) 10/10/17 09:47 Colbert % 7.0 % (0.0-13.0) 10/10/17 09:47 Eos % 1.3 % (0.9-2.9) 10/10/17 09:47 Baso % 0.4 % (0.2-1.0) 10/10/17 09:47 Neut # 5.6 x10^3/uL (2.2-4.8) H 10/10/17 09:47 Lymph # 1.8 X10^3/uL (1.3-2.9) 10/10/17 09:47 Colbert # 0.6 x10^3/uL (0.3-0.8) 10/10/17 09:47 Eos # 0.1 x10^3/uL (0.0-0.2) 10/10/17 09:47 Baso # 0.0 X10^3/uL (0.0-0.1) 10/10/17 09:47 Absolute Nucleated RBC 0.0 /100WBC 10/10/17 09:47 Sodium 141 mmol/L (136-145) 10/10/17 09:47 Corrected Sodium TNP 10/10/17 09:47 Potassium 4.0 mmol/L (3.5-5.1) 10/10/17 09:47 Chloride 106 mmol/L (98-107) 10/10/17 09:47 Carbon Dioxide 29.5 mmol/L (21-32) 10/10/17 09:47 BUN 16 mg/dL (7-18) 10/10/17 09:47 Creatinine 0.98 mg/dL (0.55-1.02) 10/10/17 09:47 Est GFR (MDRD) Af Amer > 60 (>60) 10/10/17 09:47 Est GFR (MDRD) Non-Af > 60 (>60) 10/10/17 09:47 Glucose 93 mg/dL (65-99) 10/10/17 09:47 Calcium 8.2 mg/dL (8.5-10.1) L 10/10/17 09:47 C-Reactive Protein 3.80 mg/L (0-3.0) H 10/10/17 09:47 Amylase 70 Units/L (25-115) 10/10/17 09:47 Lipase 112 Units/L (73-393) 10/10/17 09:47 HCG, Qual Negative <10 mIU/mL 10/10/17 09:47 Specimen Type Clean catch urine 10/10/17 09:30 Urine Color Yellow (YELLOW) 03/05/18 09:30 Urine Appearance Slightly hazy (CLEAR) 10/10/17 Urine pH 5.0 (5.0 - 8.0) 10/10/17: Ur Specific [place] 1.020 (1.000-1.030) 10/10/17:30 Urine Protein Negative (NEGATIVE) 10/10/17: Urine Glucose (UA) Negative (NEGATIVE) 10/10/17: Urine Ketones Negative (NEGATIVE) 10/10/17 Urine Occult Blood 3+ (NEGATIVE) 10/10/17 Urine Nitrite Negative (NEGATIVE) 10/10/17 Urine Bilirubin Negative (NEGATIVE) 10/10/17 Urine Urobilinogen Normal (NORMAL) 10/10/17 Ur Leukocyte Esterase 1+ (NEGATIVE) 10/10/17 Urine RBC 5-10 /HPF (NONE SEEN) 10/10/17 Urine WBC 2-5 /HPF (NONE SEEN) 10/10/17 Ur Squamous Epith Cells Moderate /HPF (NEGATIVE) 10/10/17 Amorphous Sediment Trace /HPF (NEGATIVE) 10/10/17 Urine Bacteria Trace /HPF (NEGATIVE) 10/10/17 Ur Culture Indicated? No/not indicated 10/10/17 - XRAY XRAY Interpreted by: Radiologist (CT Abd: The liver, pancreas, and spleen are unremarkable in appearance. The patient is status postcholecystectomy. Within the left adrenal gland there is a 3.2cmx2.8cm adrenal adenoma. The right adrenal gland is unremarkable. The patient is status post ventral abdominal wall hernia repair. The appendix is surgically absent. There are no dilated loops of bowel present within the abdomen or pelvis. No free fluid or free aire is visualized within the abdomen or pelvis. No pathologic lymphadenopathy or suspicious mesenteric stranding is appreciated. k The colon is unremarkable. The urinary bladder is unremarkable. The bony structures are intact. Impressipn: No acute intra-abdominal abnormality evident.) - Diagnosis Discharge Problem: Adrenal Ademona Abdominal pain Qualifiers: Abdominal location: left upper quadrant Qualified Code(s): R10.12 - Left upper quadrant pain - Discharge Plan Condition: Stable - Follow ups/Referrals Follow ups/Referrals: RAMESH ANDUJAR [Primary Care Provider] - 3 days - Instructions
[2017-10-10 10:00] LABS: AMORPHOUS SEDIMENT,UR TRACE /HPF (NEGATIVE); APPEARANCE,URINE SLIGHTLY HAZY (CLEAR); BACTERIA,URINE TRACE /HPF (NEGATIVE); COLOR,URINE YELLOW (YELLOW); SQUAMOUS EPITHELIAL CELL,UR MODERATE /HPF (NEGATIVE)
[2017-10-10 10:05] LABS: BASOPHILS % (AUTO) 0.4 % (0.2-1.0); EOSINOPHILS # (AUTO) 0.1 x10^3/uL (0.0-0.2); EOSINOPHILS % (AUTO) 1.3 % (0.9-2.9); HEMOGLOBIN 13.3 g/dL (12.0-16.0); LYMPHOCYTES # (AUTO) 1.8 X10^3/uL (1.3-2.9); LYMPHOCYTES % (AUTO) 22.3 % (21.0-51.0); MEAN CORPUSCULAR HEMOGLOBIN 28.4 pg (27.0-34.0); MEAN CORPUSCULAR HGB CONC 34.2 g/dL (33.0-35.0); MEAN CORPUSCULAR VOLUME 83.1 fL (80.0-100.0); MEAN PLATELET VOLUME 9.8 fL (7.4-11.0); MONOCYTES # (AUTO) 0.6 x10^3/uL (0.3-0.8); NEUTROPHILS # (AUTO) 5.6 x10^3/uL (2.2-4.8); PLATELET COUNT 174 X10^3/uL (150.0-450.0); RED BLOOD COUNT 4.69 X10^6/uL (3.5-5.4); RED CELL DISTRIBUTION WIDTH 13.5 % (11.6-16.5)
[2017-10-10 10:09] LABS: AMYLASE 70 Units/L (25-115); BLOOD UREA NITROGEN 16 mg/dL (7-18); CALCIUM 8.2 mg/dL (8.5-10.1); CARBON DIOXIDE 29.5 mmol/L (21-32); CHLORIDE 106 mmol/L (98-107); CREATININE 0.98 mg/dL (0.55-1.02); LIPASE 112 Units/L (73-393); SODIUM 141 mmol/L (136-145); eGFR BLACK RACES > 60 (>60); eGFR NON BLACK RACES > 60 (>60)
[2017-10-10 10:12] LABS: SERUM PREGNANCY TEST, QUAL NEGATIVE <10 mIU/mL
--- NOTE | 2017-10-10 10:45 | RAD ---
HISTORY: Left upper quadrant pain Study: KUB Comparison: None Findings: The abdominal gas pattern is nonspecific and nonobstructive. No abnormal masses or abnormal calcifica tions are identified. The regional skeleton is intact. The patient appears to be status post ventral hernia repair. IMPRESSION: No significant abnormality identified Reported By:
--- NOTE | 2017-10-10 11:38 | CT ---
HISTORY: Anterior abdominal pain, nausea, near syncope Study: CT abdomen and pelvis without contrast Comparison: 07/29/2017 Technique: Multiple axial images were obtained from the lung bases to the level of the ischial tuberosities with out the administration of IV contrast. Reformatted coronal and sagittal planes were produced as well. Findings: The lung bases are clear. The liver, pancreas, and spleen are unremarkable in appearance. The patient is status postcholecystec delta. Within the left adrenal gland there is a 3.2 cm x 2.8 cm adrenal adenoma. The right adrenal gla nd is unremarkable. The patient is status post ventral abdominal wall hernia repair. The appendix is surgically absent. There are no dilated loops of bowel present within the abdomen or pelvis. No free fluid or free air is visualized within the abdomen or pelvis. No pathologic lymphadenopathy or suspic ious mesenteric stranding is appreciated. The colon is unremarkable. The urinary bladder is unremarka ble. The bony structures are intact. IMPRESSION: 1. No acute intra-abdominal abnormality evident. Reported By:
== END 2017-10-10 12:03 | disposition home or self-care (01) ==
LOC: ER 09:27
DX: D35.02 Benign neoplasm of left adrenal gland (principal); R10.12 Left upper quadrant pain
CPT/HCPCS: 36415; 74018; 74176; 80048; 81001; 82150; 83690; 84703; 85025; 86140; 99282; 99283

== ENCOUNTER 2017-10-13 14:10 | Inpatient (IN) | payer SELFPAY ==
--- NOTE | 2017-10-13 14:33 | DR.CP ---
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 NO FEVER. PATIENT IN ED THIS WEEK FOR ABDOMINAL PAIN AND NEAR SYNCOPAL EPISODE. - Complaint Chief Complaint Doctor Comments: CHEST PAIN SINCE 13:OO PM TODAY. Chief Complaint:: PT C/O HAVING C/P WHILE AT WORK. PT C/O SHARP NAGGING PAINS THAT RADIATED TO HER LEFT ARM ".. PT C/O THAT PAINS STARTED AT 1300.... PT C/O HAVING HX OF CHEST PAINS BUT NOT LIKE THIS .. PT POINTS TO HER MID CHEST.. PT C/ O PAIN A 8 OUT OF 10. - Reviewed Nurses Notes Review: Yes - Source History Provided: Patient - Mode of Arrival Mode of Arrival: Ambulatory - Timing Onset of Chief Complaint: 10/13/17 Came on: Suddenly - Duration Duration: Constant Duration: Hours - Location Location of Chest Pain: Left, Chest Chest Pain Radiation Location: Left Shoulder - Context Onset: With light exertion Cardiac Risk Factors: None PE Risk Factors: None History of: None Prehospital Care: None - Quality Quality: Sharp - Severity Severity: Moderate - Modifying Factors Worsens: Nothing Impoves: Nothing - Associated Signs and Symptoms Associated Signs and Symptoms: Shortness of Breath PMH - PMH Past Medical History: Yes Past Medical History: GERD Past Surgical History: Yes Surgical History: Appendectomy, Cholecystectomy, Tonsillectomy - Family History History of Family Medical Conditions: Yes Family Medical History: Diabetes Mellitus, Hypertension - Social History Does patient currently use any type of tobacco product: No Have you used tobacco products in the last 12 months: No Type of Tobacco Use: None Does any household member use tobacco: No Alcohol Use: None Do you use any recreational Drugs:: No Lives With: Family Lives Where: Home - infectious screening In the last 2 months have you had wt loss of >10#?: NO Have you had fever, night sweats or hemotysis?: No Have you traveled outside the country in the last 6 months?: No Isolation: Standard ROS - Review of Systems Constitutional: Weakness, Fatigue. negative: Chills, Diaphoresis, Fever Eyes: No Symptoms Reported. negative: Eye Pain, Discharge ENTM: No Symptoms Reported. negative: Ear Pain, Nose Discharge, Nose Congestion , Throat Pain Respiratoy: Short of Breath. negative: Productive Cough, Non-Productive Cough, Moist Cough, Wheezing, Hemoptysis Gastrointestinal/Abdominal: Nausea. negative: Abdominal Pain Genitourinary: No Symptoms Reported Neurological: Weakness. negative: Headache, Dizziness Musculoskeletal: No Symptoms Reported Integumentary: No Symptoms Reported Hematologic/Lymphatic: No Symptoms Reported Endocrine: No Symptoms Reported All Other Systems: Reviewed and Negative PE - Vitals Vitals: Temperature 98.5 F Pulse Rate [Left] 75 Pulse Rate 79 Respiratory Rate 20 Blood Pressure [Right Arm] 115/67 Blood Pressure 120/70 O2 Sat by Pulse Oximetry 100 - General Limitations: No Limitations General Appearance: Alert - Head Head Exam: Normal Inspection - Eyes Eye exam: Normal Appearance - ENT ENT Exam: Normal External Ear Exam - Chest Chest Inspection: Symmetric Chest Wall Rise - Respiratory Respiratory Exam: Normal Lung Sounds Bilat Respiratory Exam: Bilateral Clear to Auscultation - Cardiovascular Cardiovascular Exam: Regular Rate, Normal Rhythm, Normal Heart Sounds Pulse: Normal Edema: Normal - Abdominal Exam Abdominal Exam: Normal Bowel Sounds, Soft. negative: Tenderness - Extremities Extremities Exam: Normal Inspection - Back Back Exam: Normal Inspection - Neurologic Neurological Exam: Alert, Oriented X3 - Psychiatric Psychiatric Exam: Normal Affect, Normal Mood - Skin Skin Exam: Normal Color MDM - Additional Information Additional Information Obtained From: Family - Differential Diagnosis Differential Diagnosis: Angina, Chest Wall Pain, Costochondritis, Esophageal Reflux/Spasm, Gastritis, Myocardial Infarction, Pericarditis, Pleuritis, Pancreatitis, Pneumonia, Pneumothorax, Pulmonary Embolus Course - Treatment Treatment: SEE ORDERS. S/L NTG IN ED. PAIN RESOLVED. - Consultation Consultation Comments: DISCUSS PATIENT WITH DR. CRUZ. HE WILL ADMIT PATIENT. - Education/Counseling Education/Counseling: Patient, Family, Education Educated On: Treatment, Diagnosis, Needs for Follow Up ROR - Labs Reviewed Laboratory Results Reviewed?: Yes Result Diagrams: 10/13/17 14:30 10/13/17 14:30 Laboratory: WBC 9.7 X10^3/uL (3.6-10.0) 10/13/17 14:30 RBC 4.88 X10^6/uL (3.5-5.4) 10/13/17 14:30 Hgb 13.8 g/dL (12.0-16.0) 10/13/17 14:30 Hct 40.5 % (36.0-47.0) 10/13/17 14:30 MCV 83.1 fL (80.0-100.0) 10/13/17 14:30 MCH 28.3 pg (27.0-34.0) 10/13/17 14:30 MCHC 34.1 g/dL (33.0-35.0) 10/13/17 14:30 RDW 13.7 % (11.6-16.5) 10/13/17 14:30 Plt Count 199 X10^3/uL (150.0-450.0) 10/13/17 14:30 MPV 9.4 fL (7.4-11.0) 10/13/17 14:30 Neut % 69.6 % (42.0-75.0) 10/13/17 14:30 Lymph % 22.9 % (21.0-51.0) 10/13/17 14:30 [place] % 6.0 % (0.0-13.0) 10/13/17 14:30 Eos % 1.0 % (0.9-2.9) 10/13/17 14:30 Baso % 0.5 % (0.2-1.0) 10/13/17 14:30 Neut # 6.8 x10^3/uL (2.2-4.8) H 10/13/17 14:30 Lymph # 2.2 X10^3/uL (1.3-2.9) 10/13/17 14:30 [place] # 0.6 x10^3/uL (0.3-0.8) 10/13/17 14:30 Eos # 0.1 x10^3/uL (0.0-0.2) 10/13/17 14:30 Baso # 0.0 X10^3/uL (0.0-0.1) 10/13/17 14:30 Absolute Nucleated RBC 0.0 /100WBC 10/13/17 14:30 D-Dimer < 100 ng/mL (0-400) 10/13/17 14:30 Sodium 140 mmol/L (136-145) 10/13/17 14:30 Corrected Sodium TNP 10/13/17 14:30 Potassium 3.5 mmol/L (3.5-5.1) 10/13/17 14:30 Chloride 102 mmol/L (98-107) 10/13/17 14:30 Carbon Dioxide 27.6 mmol/L (21-32) 10/13/17 14:30 BUN 15 mg/dL (7-18) 10/13/17 14:30 Creatinine 1.07 mg/dL (0.55-1.02) H 10/13/17 14:30 Est GFR (MDRD) Af Amer > 60 (>60) 10/13/17 14:30 Est GFR (MDRD) Non-Af > 60 (>60) 10/13/17 14:30 Glucose 89 mg/dL (65-99) 10/13/17 14:30 Calcium 8.2 mg/dL (8.5-10.1) L 10/13/17 14:30 Corrected Calcium TNP 10/13/17 14:30 Total Bilirubin 0.30 mg/dL (0.2-1.0) 10/13/17 14:30 AST 15 Units/L (15-37) 10/13/17 14:30 ALT 22 Units/L (12-78) 10/13/17 14:30 Alkaline Phosphatase 57 Units/L (46-116) 10/13/17 14:30 Creatine Kinase 130 Units/L (26-192) 10/13/17 14:30 CK-MB (CK-2) 1.0 ng/mL (0-4.0) 10/13/17 14:30 CK/CKMB % Calc 0.8 % (<4) 10/13/17 14:30 Troponin I < 0.02 ng/mL (0-1.5) 10/13/17 14:30 Total Protein 7.5 g/dL (6.4-8.2) 10/13/17 14:30 Albumin 4.0 g/dL (3.4-5.0) 10/13/17 14:30 Globulin 3.5 g/dL (2.5-4.5) 10/13/17 14:30 Albumin/Globulin Ratio 1.1 Ratio (1.1-2.1) 10/13/17 14:30 H. pylori IgG Antibody Positive (NEGATIVE) A 10/13/17 14:30 - XRAY XRAY Findings: REPORT DISCUSS WITH PATIENT AND HER FAMILY. - EKG Rhythm: NSR ST: Nonsp (EKG NOTED.) - Diagnosis Discharge Problem: Helicobacter pylori antibody positive Chest pain Qualifiers: Chest pain type: precordial pain Qualified Code(s): R07.2 - Precordial pain - Discharge Plan Disposition: 09 ADMITTED INPATIENT Condition: Stable - Follow ups/Referrals - Instructions
[2017-10-13] MEDS ORDERED: NITROSTAT SL ONE (14:36)
[2017-10-13] MEDS ORDERED: PEPCID 20 MG IV PREMIX* 20 MG/50 ML BAG IV ONE ×2 (14:36→14:37)
[2017-10-13] MEDS ORDERED: ASPIRIN ONE (14:36)
[2017-10-13] MEDS ORDERED: NITROSTAT SL PRN (14:36)
[2017-10-13 14:41] LABS: BASOPHILS % (AUTO) 0.5 % (0.2-1.0); EOSINOPHILS # (AUTO) 0.1 x10^3/uL (0.0-0.2); HEMATOCRIT 40.5 % (36.0-47.0); HEMOGLOBIN 13.8 g/dL (12.0-16.0); LYMPHOCYTES # (AUTO) 2.2 X10^3/uL (1.3-2.9); LYMPHOCYTES % (AUTO) 22.9 % (21.0-51.0); MEAN CORPUSCULAR HEMOGLOBIN 28.3 pg (27.0-34.0); MEAN CORPUSCULAR HGB CONC 34.1 g/dL (33.0-35.0); MEAN CORPUSCULAR VOLUME 83.1 fL (80.0-100.0); MEAN PLATELET VOLUME 9.4 fL (7.4-11.0); MONOCYTES # (AUTO) 0.6 x10^3/uL (0.3-0.8); NEUTROPHILS # (AUTO) 6.8 x10^3/uL (2.2-4.8); NEUTROPHILS % (AUTO) 69.6 % (42.0-75.0); PLATELET COUNT 199 X10^3/uL (150.0-450.0); RED BLOOD COUNT 4.88 X10^6/uL (3.5-5.4); RED CELL DISTRIBUTION WIDTH 13.7 % (11.6-16.5); WHITE BLOOD COUNT 9.7 X10^3/uL (3.6-10.0)
[2017-10-13 14:59] LABS: BLOOD UREA NITROGEN 15 mg/dL (7-18); CALCIUM 8.2 mg/dL (8.5-10.1); CARBON DIOXIDE 27.6 mmol/L (21-32); CHLORIDE 102 mmol/L (98-107); CREATININE 1.07 mg/dL (0.55-1.02); SODIUM 140 mmol/L (136-145); TROPONIN I < 0.02 ng/mL (0-1.5); eGFR BLACK RACES > 60 (>60); eGFR NON BLACK RACES > 60 (>60)
[2017-10-13] MEDS ORDERED: ASPIRIN 81 MG CHEWTAB PO SCH (15:00)
[2017-10-13 15:03] LABS: ALANINE AMINOTRANSFERASE 22 Units/L (12-78); ALKALINE PHOSPHATASE 57 Units/L (46-116); ASPARTATE AMINO TRANSFERASE 15 Units/L (15-37); CKMB % 0.8 % (<4); CREATINE KINASE 130 Units/L (26-192); TOTAL PROTEIN 7.5 g/dL (6.4-8.2)
--- NOTE | 2017-10-13 15:05 | RAD ---
HISTORY: Radiating left-sided chest pain Study: Single-view chest Comparison: February 10, 2017 Findings: The heart is normal. The lungs are clear. Osseous structures are intact. There is no effusion or pneu mothorax. IMPRESSION: Negative chest. Reported By:
[2017-10-13] MEDS: NS 1000 ML 1,000 ML IV SCH (17:44)
[2017-10-13] MEDS: MORPHINE SULFATE INJ 2 MG INJ IVP PRN (19:55)
[2017-10-13] MEDS: PEPCID 20 MG IV PREMIX* 20 MG/50 ML BAG IV SCH (20:11)
[2017-10-13 21:15] LABS: CREATINE KINASE 96 Units/L (26-192); CREATINE KINASE MB < 1.0 ng/mL (0-4.0); TROPONIN I < 0.02 ng/mL (0-1.5)
[2017-10-14 05:28] LABS: BASOPHILS % (AUTO) 0.4 % (0.2-1.0); EOSINOPHILS # (AUTO) 0.1 x10^3/uL (0.0-0.2); EOSINOPHILS % (AUTO) 1.8 % (0.9-2.9); HEMATOCRIT 34.5 % (36.0-47.0); HEMOGLOBIN 11.9 g/dL (12.0-16.0); LYMPHOCYTES # (AUTO) 1.8 X10^3/uL (1.3-2.9); LYMPHOCYTES % (AUTO) 27.4 % (21.0-51.0); MEAN CORPUSCULAR HEMOGLOBIN 28.4 pg (27.0-34.0); MEAN CORPUSCULAR HGB CONC 34.4 g/dL (33.0-35.0); MEAN CORPUSCULAR VOLUME 82.5 fL (80.0-100.0); MEAN PLATELET VOLUME 9.9 fL (7.4-11.0); MONOCYTES # (AUTO) 0.6 x10^3/uL (0.3-0.8); MONOCYTES % (AUTO) 8.7 % (0.0-13.0); NEUTROPHILS % (AUTO) 61.7 % (42.0-75.0); PLATELET COUNT 155 X10^3/uL (150.0-450.0); RED BLOOD COUNT 4.18 X10^6/uL (3.5-5.4); RED CELL DISTRIBUTION WIDTH 13.7 % (11.6-16.5); WHITE BLOOD COUNT 6.5 X10^3/uL (3.6-10.0)
[2017-10-14 05:43] LABS: ALANINE AMINOTRANSFERASE 19 Units/L (12-78); ALBUMIN 3.2 g/dL (3.4-5.0); ALKALINE PHOSPHATASE 41 Units/L (46-116); ASPARTATE AMINO TRANSFERASE 14 Units/L (15-37); BLOOD UREA NITROGEN 15 mg/dL (7-18); CALCIUM 7.7 mg/dL (8.5-10.1); CARBON DIOXIDE 27.1 mmol/L (21-32); CHLORIDE 107 mmol/L (98-107); CHOL/HDL RATIO 4.3 (0.0-5.0); CHOLESTEROL 159 mg/dL (0-200); CKMB % 1.5 % (<4); COR CA(FOR HYPOALB) 8.3 mg/dL (8.5-10.1); CREATINE KINASE 67 Units/L (26-192); CREATINE KINASE MB < 1.0 ng/mL (0-4.0); HDL CHOLESTEROL 37 mg/dL (40-60); MAGNESIUM 2.2 mg/dL (1.7-2.9); SODIUM 143 mmol/L (136-145); TRIGLYCERIDES 66 mg/dL (0-150); TROPONIN I < 0.02 ng/mL (0-1.5); eGFR BLACK RACES > 60 (>60); eGFR NON BLACK RACES > 60 (>60)
[2017-10-14] MEDS: MORPHINE SULFATE INJ 2 MG INJ IVP PRN ×2 (05:47→11:11)
[2017-10-14] MEDS: NS 1000 ML 1,000 ML IV SCH ×2 (05:53→18:49)
[2017-10-14] MEDS: PEPCID 20 MG IV PREMIX* 20 MG/50 ML BAG IV SCH ×2 (08:50→20:01)
[2017-10-14] MEDS: ASPIRIN PO SCH (08:50)
[2017-10-14 09:41] VITALS: BMI 38.7
[2017-10-14] MEDS: PROTONIX INJ 40 MG VIAL IVP SCH ×2 (10:43→20:01)
[2017-10-14] MEDS: ZOFRAN INJ 4 MG VIAL IVP PRN ×2 (11:10→17:25)
[2017-10-15] MEDS: ZOFRAN INJ 4 MG VIAL IVP PRN (01:45)
[2017-10-15] MEDS: NS 1000 ML 1,000 ML IV SCH ×2 (06:01→20:01)
[2017-10-15 06:12] LABS: BASOPHILS % (AUTO) 0.2 % (0.2-1.0); EOSINOPHILS # (AUTO) 0.1 x10^3/uL (0.0-0.2); EOSINOPHILS % (AUTO) 1.6 % (0.9-2.9); HEMATOCRIT 32.9 % (36.0-47.0); HEMOGLOBIN 11.4 g/dL (12.0-16.0); LYMPHOCYTES # (AUTO) 1.1 X10^3/uL (1.3-2.9); LYMPHOCYTES % (AUTO) 20.6 % (21.0-51.0); MEAN CORPUSCULAR HEMOGLOBIN 28.7 pg (27.0-34.0); MEAN CORPUSCULAR HGB CONC 34.6 g/dL (33.0-35.0); MEAN CORPUSCULAR VOLUME 83.1 fL (80.0-100.0); MEAN PLATELET VOLUME 10.3 fL (7.4-11.0); MONOCYTES # (AUTO) 0.4 x10^3/uL (0.3-0.8); NEUTROPHILS # (AUTO) 3.8 x10^3/uL (2.2-4.8); NEUTROPHILS % (AUTO) 70.6 % (42.0-75.0); PLATELET COUNT 134 X10^3/uL (150.0-450.0); RED BLOOD COUNT 3.96 X10^6/uL (3.5-5.4); RED CELL DISTRIBUTION WIDTH 13.6 % (11.6-16.5); WHITE BLOOD COUNT 5.4 X10^3/uL (3.6-10.0)
[2017-10-15 06:41] LABS: ALANINE AMINOTRANSFERASE 655 Units/L (12-78); ALKALINE PHOSPHATASE 65 Units/L (46-116); ASPARTATE AMINO TRANSFERASE 316 Units/L (15-37); BLOOD UREA NITROGEN 11 mg/dL (7-18); CALCIUM 7.5 mg/dL (8.5-10.1); CHLORIDE 108 mmol/L (98-107); COR CA(FOR HYPOALB) 8.3 mg/dL (8.5-10.1); CREATININE 0.98 mg/dL (0.55-1.02); SODIUM 142 mmol/L (136-145); TOTAL PROTEIN 5.8 g/dL (6.4-8.2); eGFR BLACK RACES > 60 (>60); eGFR NON BLACK RACES > 60 (>60)
[2017-10-15] MEDS: PEPCID 20 MG IV PREMIX* 20 MG/50 ML BAG IV SCH ×2 (08:31→20:01)
[2017-10-15] MEDS: ASPIRIN PO SCH (08:31)
[2017-10-15] MEDS: PROTONIX INJ 40 MG VIAL IVP SCH ×2 (08:31→20:02)
[2017-10-15] MEDS ORDERED: LEVSIN/MAALOX/LIDOC VISC PO ONE (09:52)
[2017-10-15 10:06] LABS: AMYLASE 31 Units/L (25-115); LIPASE 89 Units/L (73-393)
[2017-10-15] MEDS: MILK OF MAGNESIA PO SCH ×3 (10:58→20:02)
[2017-10-16] MEDS: MILK OF MAGNESIA PO SCH ×3 (00:08→08:07)
[2017-10-16] MEDS: PREDNISONE TAB 10 MG PO SCH ×3 (01:53→15:25)
[2017-10-16 06:05] LABS: BASOPHILS % (AUTO) 0.2 % (0.2-1.0); EOSINOPHILS # (AUTO) 0.1 x10^3/uL (0.0-0.2); EOSINOPHILS % (AUTO) 0.9 % (0.9-2.9); HEMATOCRIT 34.4 % (36.0-47.0); HEMOGLOBIN 11.6 g/dL (12.0-16.0); LYMPHOCYTES # (AUTO) 1.4 X10^3/uL (1.3-2.9); LYMPHOCYTES % (AUTO) 16.6 % (21.0-51.0); MEAN CORPUSCULAR HEMOGLOBIN 28.4 pg (27.0-34.0); MEAN CORPUSCULAR HGB CONC 33.8 g/dL (33.0-35.0); MEAN PLATELET VOLUME 10.9 fL (7.4-11.0); MONOCYTES # (AUTO) 0.5 x10^3/uL (0.3-0.8); NEUTROPHILS # (AUTO) 6.2 x10^3/uL (2.2-4.8); NEUTROPHILS % (AUTO) 76.3 % (42.0-75.0); PLATELET COUNT 138 X10^3/uL (150.0-450.0); RED BLOOD COUNT 4.09 X10^6/uL (3.5-5.4); RED CELL DISTRIBUTION WIDTH 13.6 % (11.6-16.5); WHITE BLOOD COUNT 8.2 X10^3/uL (3.6-10.0)
[2017-10-16 06:14] LABS: ALANINE AMINOTRANSFERASE 441 Units/L (12-78); ALBUMIN 3.1 g/dL (3.4-5.0); ALKALINE PHOSPHATASE 61 Units/L (46-116); ASPARTATE AMINO TRANSFERASE 117 Units/L (15-37); BLOOD UREA NITROGEN 10 mg/dL (7-18); CALCIUM 7.5 mg/dL (8.5-10.1); CARBON DIOXIDE 28.7 mmol/L (21-32); CHLORIDE 107 mmol/L (98-107); COR CA(FOR HYPOALB) 8.2 mg/dL (8.5-10.1); COR NA(FOR HYPERGLY) 142 mmol/L (136-145); CREATININE 1.02 mg/dL (0.55-1.02); SODIUM 142 mmol/L (136-145); eGFR BLACK RACES > 60 (>60); eGFR NON BLACK RACES > 60 (>60)
[2017-10-16] MEDS: PEPCID 20 MG IV PREMIX* 20 MG/50 ML BAG IV SCH ×2 (08:59→20:05)
[2017-10-16] MEDS: ASPIRIN PO SCH (08:59)
[2017-10-16] MEDS: PROTONIX INJ 40 MG VIAL IVP SCH ×2 (08:59→20:05)
[2017-10-16] MEDS: NS 1000 ML 1,000 ML IV SCH (13:00)
[2017-10-16] MEDS ORDERED: BENADRYL CAP 50 MG PO SCH (15:37)
--- NOTE | 2017-10-16 18:55 | CT ---
HISTORY: ABDOMINAL PAIN. PELVIC PAIN. EXAM: POSTCONTRAST CT EXAMINATION OF THE ABDOMEN AND PELVIS. COMPARISON: ABDOMINOPELVIC CT EXAM DATED 06/25/2016. TECHNIQUE: Axial noncontrast CT images of the abdomen and pelvis were performed following the adminis tration of IV contrast. Findings: The lung bases are clear. The heart is normal in size without pericardial effusion. There i s a stable 3 cm left adrenal gland adenoma, as discussed previously. The pancreas, right adrenal glan d, kidneys bilaterally, spleen, and liver are unremarkable in appearance. The gallbladder has been haider rgically removed. There is no evidence for acute appendicitis, or acute diverticulitis. Prominent ova osmel remain bilateral which can be followed up with pelvic sonography. The uterus is unremarkable, as is the bladder. There is some fluid seen throughout the nondilated colon which would imply a diarrhe al illness or possible gastroenteritis. This can be correlated with patient's clinical presentation. Postop changes seen following a prior umbilical hernia repair without evidence for recurrent hernia d efect or bowel obstruction/strangulation. No free air, bowel wall pneumatosis, or portal venous gas i s seen. No drainable fluid collection or pelvic fluid collection is identified. No acute fracture or destructive lytic bony lesion/process is evident. Impression: 1. Imaging findings suggesting a diarrheal illness or gastroenteritis, as above. 2. Status post prior umbilical hernia surgery repair without evidence for recurrent hernia defect, rebeca wel obstruction, free air, or other acute process observed. 3. Prominent ovaries bilaterally. This can be followed up with pelvic sonography, as stated previousl y. Status post cholecystectomy and presumed appendectomy. 4. No other acute abdominopelvic changes from prior are observed. Reported By:
[2017-10-17] MEDS: NS 1000 ML 1,000 ML IV SCH ×3 (01:37→20:49)
[2017-10-17 04:53] LABS: ALANINE AMINOTRANSFERASE 306 Units/L (12-78); ALBUMIN 3.1 g/dL (3.4-5.0); ALKALINE PHOSPHATASE 61 Units/L (46-116); ASPARTATE AMINO TRANSFERASE 42 Units/L (15-37); BLOOD UREA NITROGEN 13 mg/dL (7-18); CALCIUM 7.8 mg/dL (8.5-10.1); CARBON DIOXIDE 24.9 mmol/L (21-32); CHLORIDE 106 mmol/L (98-107); COR CA(FOR HYPOALB) 8.5 mg/dL (8.5-10.1); COR NA(FOR HYPERGLY) 137 mmol/L (136-145); CREATININE 0.93 mg/dL (0.55-1.02); SODIUM 136 mmol/L (136-145); TOTAL PROTEIN 6.2 g/dL (6.4-8.2); eGFR BLACK RACES > 60 (>60); eGFR NON BLACK RACES > 60 (>60)
[2017-10-17 04:58] LABS: BASOPHILS % (AUTO) 0.1 % (0.2-1.0); HEMATOCRIT 36.6 % (36.0-47.0); HEMOGLOBIN 12.2 g/dL (12.0-16.0); LYMPHOCYTES # (AUTO) 1.7 X10^3/uL (1.3-2.9); MEAN CORPUSCULAR HGB CONC 33.2 g/dL (33.0-35.0); MEAN CORPUSCULAR VOLUME 84.2 fL (80.0-100.0); MEAN PLATELET VOLUME 10.1 fL (7.4-11.0); MONOCYTES # (AUTO) 0.8 x10^3/uL (0.3-0.8); MONOCYTES % (AUTO) 5.3 % (0.0-13.0); NEUTROPHILS % (AUTO) 83.6 % (42.0-75.0); PLATELET COUNT 178 X10^3/uL (150.0-450.0); RED BLOOD COUNT 4.34 X10^6/uL (3.5-5.4); RED CELL DISTRIBUTION WIDTH 13.5 % (11.6-16.5); WHITE BLOOD COUNT 15.6 X10^3/uL (3.6-10.0)
[2017-10-17] MEDS: PEPCID 20 MG IV PREMIX* 20 MG/50 ML BAG IV SCH ×2 (08:44→20:45)
[2017-10-17] MEDS: ASPIRIN PO SCH (08:44)
[2017-10-17] MEDS: PROTONIX INJ 40 MG VIAL IVP SCH ×2 (08:44→20:47)
--- NOTE | 2017-10-17 10:51 | DR.H&P ---
H&P - History & Physical for Day of: H&P Date: 10/13/17 - Chief Complaint Chief Complaint: CHEST PAIN - Allergies Allergies/Adverse Reactions: Allergies Allergy/AdvReac Type Severity Reaction Status Date / Time acetaminophen [From Tylenol] Allergy Verified 10/13/17 15:35 amoxicillin [From Augmentin] Allergy Verified 10/13/17 15:35 azithromycin [From Zithromax] Allergy Verified 10/13/17 15:35 cefaclor [From Ceclor] Allergy Verified 10/13/17 15:35 cephalexin [From Keflex] Allergy Verified 10/13/17 15:35 clarithromycin [From Biaxin] Allergy Verified 10/13/17 15:35 clavulanic acid Allergy Verified 10/13/17 15:35 [From Augmentin] clindamycin Allergy Verified 10/13/17 15:35 hydrocodone [From Vicodin] Allergy Verified 10/13/17 15:35 oxycodone [From Percocet] Allergy Verified 10/13/17 15:35 propoxyphene Allergy Verified 10/13/17 15:35 [From Darvocet-N 100] sulfamethoxazole Allergy Verified 10/13/17 15:35 [From Bactrim] telithromycin Allergy Verified 10/13/17 15:35 trimethoprim [From Bactrim] Allergy Verified 10/13/17 15:35 erythromycin base AdvReac Verified 10/13/17 15:35 shrimp Allergy Severe whelps,breathing Uncoded 10/13/17 16:54 problems. - History of Present Illness History of Present Illness: IS A 37 YEAR OLD PATIENT OF OURS WHO PRESENTED TO THE EMERGENCY ROM WITH COMPLAINTS OF CHEST PAIN. PATIENT REPORTS THAT THE PAIN IS MID-STERNAL, SHARP, AND RADIATES TO THE LEFT ARM. PAIN ONSET WAS ABOUT AN HOUR PRIOR TO ARRIVAL AT ED. PATIENT RATES PAIN 8/10 IN SEVERITY. ASSOCIATED SYMPTOMS ARE WEAKNESS, NAUSEA, AND SHORTNESS OF BREATH. SHE WAS ALSO SEEN IN THE ED EARLIER IN THE WEEK FOR COMPLAINTS OF ABDOMINAL PAIN AND NEAR SYNCOPE. ON ARRIVAL TO THE EMERGENCY DEPARTMENT, VITALS WERE 98.5-79-20-100%-120 /70. LABS WERE OBTAINED. ABNORMAL LAB VALUES INCLUDE THE FOLLOWING: CREATININE 1.07, CALCIUM 8.2, H-PYLORI POSITIVE. EKG REVEALED SINUS RHYTHM WITH HR 69. CHEST XRAY NEGATIVE FOR ACUTE CARDIOPULMONARY ABNORMALITIES. PATIENT WAS GIVEN NITROGLYCERIN 0.4MG SL X 3 WITH ONLY SLIGHT IMPROVEMENT IN PAIN NOTED. WE ADMITTIED PATIENT TO THE HOSPITAL FOR FURTHER TREATMENT AND EVALUATION TO RULE OUT ACUTE MYOCARDIAL INFARCTION. SHE WAS STARTED ON NORMAL SALINE AT 75ML/HR, NITROGLYCERIN 0.4MG SL Q5M PRN, MORPHINE 2MG IV Q6H PRN, ASA 325MG PO DAILY, AND PEPCID 20MG IV Q12H. WE WILL OBTAIN SERIAL CARDIAC ENZYMES AND EKGS. WE PLAN TO FOLLOW UP WITH AM LABS AND CONTINUE TO MONITOR PATIENT. - Past Medical History Past Medical History: GERD - Past Surgical History Surgical History: Appendectomy, Cholecystectomy, Tonsillectomy - Family History Family Medical History: Diabetes Mellitus, Hypertension - Social History Does patient currently use any type of tobacco product: No Have you used tobacco products in the last 12 months: No Type of Tobacco Use: None Does any household member use tobacco: No Alcohol Use: None Drug Use: None - Medications Home Medications: Cetirizine HCl [Zyrtec Tab 10 mg] 1 tab PO PRN PRN 10/13/17 [History Confirmed 10/13/17] - Review of Systems Constitutional: Weakness, Other (FATIGUE) Eyes: No Symptoms Reported. denies: See HPI, Pain, Vision Change, Conjunctivae Inflammation, Eyelid Inflammation, Redness, Other ENT: No Symptoms Reported. denies: See HPI, Ear Pain, Ear Discharge, Nose Pain , Nose Discharge, Nose Congestion, Mouth Pain, Mouth Swelling, Throat Pain, Throat Swelling, Other Respiratory: See HPI, Shortness of Breath. denies: Cough, Hemoptysis, Sputum, Wheezing Cardiovascular: Chest Pain, See HPI Gastrointestinal: Nausea Genitourinary: No Symptoms Reported. denies: See HPI, Dysuria, Frequency, Incontinence, Hematuria, Retention, Other Musculoskeletal: No Symptoms Reported. denies: See HPI, Shoulder Pain, Arm Pain , Back Pain, Hand Pain, Leg Pain, Foot Pain, Neck Pain, Other Skin: No Symptoms Reported. denies: See HPI, Rash, Lesions, Jaundice, Bruising , Wound, Ecchymosis, Other - Physical Exam Vital Signs: Temperature 97.9 F Pulse Rate [Right Brachial] 104 Pulse Rate [Left Brachial] 72 Pulse Rate [Left] 66 Pulse Rate 79 Respiratory Rate 18 Blood Pressure [Left Arm] 110/56 Blood Pressure [Right Arm] 135/58 Blood Pressure 120/70 O2 Sat by Pulse Oximetry 99 Oriented: Normal Eyes: Normal. negative: Blurred Vision, Diplopia, Discharge, Pain, Redness, Photophobia, Other Ear: Normal. negative: Right, Left, Swelling, Ecchymosis, Hemotypanum, Abrasion , Laceration Nose: Normal. negative: Injected, Discharge, Blood, Other Throat: Normal. negative: Tonsillar Hypertrophy, Red, Exudate, Dry, Other Respiratory: Clear Throughout Cardiovascular: Normal : Normal. negative: Dysuria, Hematuria, Frequency, Discharge, Testicular Pain , Bleeding, , Other Auscultation: Bowel Sounds: Normal. negative: Bruit, Absent, Increased, Decreased, High Pitched, Other Palpation: Normal. negative: Spleen Enlarged, Liver Enlarged, Mass Pulsatile, Other Tenderness: Epigastric, Mild. negative: Rebound, Guarding, Rigidity Skin: Normal Musculoskeletal: Normal Psychiatric: Normal Mood Description: Calm Affect: Normal Speech Pattern: Clear - Assessment/Plan (1) Chest pain Qualifiers: Chest pain type: precordial pain Qualified Code(s): R07.2 - Precordial pain Status: Acute Plan: SERIAL CARDIAC ENZYMES AND EKGS, MORPHINE Q6H PRN, NITROGLYCERIN 0.4MG SL Q5M PRN, CONTINUE TO MONITOR (2) Helicobacter pylori antibody positive Status: Acute Plan: PEPCID 20MG IV Q12H, CONTINUE TO MONTIOR
--- NOTE | 2017-10-17 16:17 | MRI ---
HISTORY: Elevated LFTs, abdominal pain, nausea Study: MRI abdomen was without contrast, MRCP protocol Comparison: October 16, 2017 and additional priors dating back to June 25, 2016 Technique: Multi planar, multi sequence MRI images of the abdomen were reviewed without contrast util izing the MRCP protocol with MIP 3D reformatted post processing performed and reviewed. Findings: The patient has undergone previous umbilical hernia repair. The patient is status post cholecystectom y. There is no pancreatic or biliary ductal dilation. There is no free fluid. There is a stable 3 cm left adrenal mass most consistent with a lipid rich adrenal adenoma. No mesenteric or retroperitoneal lymphadenopathy is identified. The remainder of the solid organs are grossly unremarkable in their n oncontrast appearance with image degradation also noted secondary to respiratory motion artifact. The re are a couple of tiny incidental T2 hyperintense hepatic and splenic lesions most likely reflecting small cysts or hemangiomas. Please note that detection of any solid lesions is limited without the b enefit of intravenous contrast. However, there are no findings on recent CT to suggest any additional solid organ mass lesions. There are incidental trace basilar pleural effusions versus pleural thicke kristal. No marrow replacement process is identified. IMPRESSION: A few tiny hepatic and splenic cysts or hemangiomas are suspected on this limited noncontrast exam wi th patient respiratory motion artifact. Status post cholecystectomy and umbilical hernia repair. There is no biliary or pancreatic ductal dil ation. Lipid rich left adrenal adenoma. Trace basilar pleural effusions versus pleural thickening. Reported By:
[2017-10-17] MEDS: ZOFRAN INJ 4 MG VIAL IVP PRN (19:49)
--- NOTE | 2017-10-17 21:18 | PCM.PROG ---
Progress Note - Progress Note for Day of Date: 10/17/17 - Subjective Subjective: IS BEING TREATED FOR H-PYLORI, ABDOMINAL PAIN, AND ELEVATED LIVER ENZYMES. TODAY, SHE IS ALERT AND ORIENTED, LYING IN BED ON MORNING ROUNDS. SHE CONTINUES WITH COMPLAINTS OF EPIGASTRIC PAIN. ON EXAMINATION , HEART IS REGULAR IN RATE AND RHYTHM. BILATERAL LUNGS ARE CLEAR THROUGHOUT. ABDOMEN IS ROUND, SOFT, AND NOTED WITH MILD EPIGASTRIC PAIN ON EXAMINATION. THERE IS NORMAL RANGE OF MOTION FOR ALL EXTREMITIES. HER VITALS THIS MORNING ARE 97.9-72-18-99%-110/56. LABS WERE OBTAINED THIS MORNING. ABNORMAL LAB VALUES INCLUDE THE FOLLOWING: WBC INCREASED FROM 8.2 TO 15.6. GLUCOSE 143, CALCIUM 7.8 , AST 42, ALT 306, TOTAL PROTEIN 6.2, ALBUMIN 3.1. AN ABD/PELVIS CT WITH CONTRAST WAS OBTAINED YESTERDAY AND REPORTED FINDINGS SUGGESTING A DIARRHEAL ILLNESS OR GASTROENTERITIS. PROMINENT OVARIES BILATERALLY. NO OTHER ACUTE ADOMINOPELVIC CHANGES FROM PRIOR EXAMS. SHE IS SCHEDULED FOR AN MRCP THIS MORNING TO RULE OUT OBSTRUCTION OF DUCTS. OTHERWISE, WE WILL CONTINUE WITH PPI THERAPY. WE PLAN TO FOLLOW UP WITH AM LABS AND CONTINUE TO MONITOR PATIENT. - Past Medical Family Social History Past Med/Fam/Surg Hx: No changes since H&P Allergies: Allergies acetaminophen [From Tylenol] Allergy (Verified 10/13/17 15:35) amoxicillin [From Augmentin] Allergy (Verified 10/13/17 15:35) azithromycin [From Zithromax] Allergy (Verified 10/13/17 15:35) cefaclor [From Ceclor] Allergy (Verified 10/13/17 15:35) cephalexin [From Keflex] Allergy (Verified 10/13/17 15:35) clarithromycin [From Biaxin] Allergy (Verified 10/13/17 15:35) clavulanic acid [From Augmentin] Allergy (Verified 10/13/17 15:35) clindamycin Allergy (Verified 10/13/17 15:35) hydrocodone [From Vicodin] Allergy (Verified 10/13/17 15:35) oxycodone [From Percocet] Allergy (Verified 10/13/17 15:35) propoxyphene [From Darvocet-N 100] Allergy (Verified 10/13/17 15:35) sulfamethoxazole [From Bactrim] Allergy (Verified 10/13/17 15:35) telithromycin Allergy (Verified 10/13/17 15:35) trimethoprim [From Bactrim] Allergy (Verified 10/13/17 15:35) erythromycin base Adverse Reaction (Verified 10/13/17 15:35) shrimp Allergy (Severe, Uncoded 10/13/17 16:54) whelps,breathing problems. when i get a xray with dye. - Review of Systems ROS: No change since H&P - Vital Signs and I&O's Vital Signs: Temperature 98.1 F Pulse Rate [Right Brachial] 76 Pulse Rate [Left Brachial] 72 Pulse Rate [Left] 66 Pulse Rate 79 Respiratory Rate 20 Blood Pressure [Left Arm] 116/62 Blood Pressure [Right Arm] 116/64 Blood Pressure 120/70 O2 Sat by Pulse Oximetry 99 Intake and Output: Intake & Output 10/15/17 10/16/17 10/17/17 10/18/17 10:59 11:59 11:59 11:59 Intake Total 1680 0 Balance 1680 0 - Physical Exam Oriented: Normal Eyes: Normal. negative: Blurred Vision, Diplopia, Discharge, Pain, Redness, Photophobia, Other Ear: Normal. negative: Right, Left, Swelling, Ecchymosis, Hemotypanum, Abrasion , Laceration Nose: Normal. negative: Injected, Discharge, Blood, Other Throat: Normal. negative: Tonsillar Hypertrophy, Red, Exudate, Dry, Other Respiratory: Normal Cardiovascular: Normal : Normal. negative: Dysuria, Hematuria, Frequency, Discharge, Testicular Pain , Bleeding, , Other Auscultation: Bowel Sounds: Normal. negative: Bruit, Absent, Increased, Decreased, High Pitched, Other Tenderness: Epigastric, Mild. negative: Rebound, Guarding, Rigidity Skin: Normal Musculoskeletal: Normal Psychiatric: Normal Mood Description: Calm Affect: Normal Speech Pattern: Clear, Appropriate - Laboratory and Diagnostics Result Diagrams: 10/17/17 04:11 10/17/17 04:11 Labs: Laboratory WBC 15.6 X10^3/uL (3.6-10.0) H 10/17/17 04:11 RBC 4.34 X10^6/uL (3.5-5.4) 10/17/17 04:11 Hgb 12.2 g/dL (12.0-16.0) 10/17/17 04:11 Hct 36.6 % (36.0-47.0) 10/17/17 04:11 MCV 84.2 fL (80.0-100.0) 10/17/17 04:11 MCH 28.0 pg (27.0-34.0) 10/17/17 04:11 MCHC 33.2 g/dL (33.0-35.0) 10/17/17 04:11 RDW 13.5 % (11.6-16.5) 10/17/17 04:11 Plt Count 178 X10^3/uL (150.0-450.0) 10/17/17 04:11 MPV 10.1 fL (7.4-11.0) 10/17/17 04:11 Neut % 83.6 % (42.0-75.0) H 10/17/17 04:11 Lymph % 11.0 % (21.0-51.0) L 10/17/17 04:11 [place] % 5.3 % (0.0-13.0) 10/17/17 04:11 Eos % 0.0 % (0.9-2.9) L 10/17/17 04:11 Baso % 0.1 % (0.2-1.0) L 10/17/17 04:11 Neut # 13.0 x10^3/uL (2.2-4.8) H 10/17/17 04:11 Lymph # 1.7 X10^3/uL (1.3-2.9) 10/17/17 04:11 [place] # 0.8 x10^3/uL (0.3-0.8) 10/17/17 04:11 Eos # 0.0 x10^3/uL (0.0-0.2) 10/17/17 04:11 Baso # 0.0 X10^3/uL (0.0-0.1) 10/17/17 04:11 Absolute Nucleated RBC 0.0 /100WBC 10/17/17 04:11 D-Dimer < 100 ng/mL (0-400) 10/13/17 14:30 Sodium 136 mmol/L (136-145) 10/17/17 04:11 Corrected Sodium 137 mmol/L (136-145) 10/17/17 04:11 Potassium 4.2 mmol/L (3.5-5.1) 10/17/17 04:11 Chloride 106 mmol/L (98-107) 10/17/17 04:11 Carbon Dioxide 24.9 mmol/L (21-32) 10/17/17 04:11 BUN 13 mg/dL (7-18) 10/17/17 04:11 Creatinine 0.93 mg/dL (0.55-1.02) 10/17/17 04:11 Est GFR (MDRD) Af Amer > 60 (>60) 10/17/17 04:11 Est GFR (MDRD) Non-Af > 60 (>60) 10/17/17 04:11 Glucose 143 mg/dL (65-99) H 10/17/17 04:11 Calcium 7.8 mg/dL (8.5-10.1) L 10/17/17 04:11 Corrected Calcium 8.5 mg/dL (8.5-10.1) 10/17/17 04:11 Magnesium 2.2 mg/dL (1.7-2.9) 10/14/17 04:34 Total Bilirubin 0.20 mg/dL (0.2-1.0) 10/17/17 04:11 AST 42 Units/L (15-37) H 10/17/17 04:11 ALT 306 Units/L (12-78) H 10/17/17 04:11 Alkaline Phosphatase 61 Units/L (46-116) 10/17/17 04:11 Creatine Kinase 67 Units/L (26-192) 10/14/17 04:34 CK-MB (CK-2) < 1.0 ng/mL (0-4.0) 10/14/17 04:34 CK/CKMB % Calc 1.5 % (<4) 10/14/17 04:34 Troponin I < 0.02 ng/mL (0-1.5) 10/14/17 04:34 Total Protein 6.2 g/dL (6.4-8.2) L 10/17/17 04:11 Albumin 3.1 g/dL (3.4-5.0) L 10/17/17 04:11 Globulin 3.1 g/dL (2.5-4.5) 10/17/17 04:11 Albumin/Globulin Ratio 1.0 Ratio (1.1-2.1) L 10/17/17 04:11 Triglycerides 66 mg/dL (0-150) 10/14/17 04:34 Cholesterol 159 mg/dL (0-200) 10/14/17 04:34 LDL Cholesterol, Calc 109 mg/dL (0-100) H 10/14/17 04:34 HDL Cholesterol 37 mg/dL (40-60) L 10/14/17 04:34 Cholesterol/HDL Ratio 4.3 (0.0-5.0) 10/14/17 04:34 Amylase 31 Units/L (25-115) 10/15/17 04:53 Lipase 89 Units/L (73-393) 10/15/17 04:53 H. pylori IgG Antibody Positive (NEGATIVE) A 10/13/17 14:30 - Plan (1) Helicobacter pylori antibody positive Status: Acute Plan: PEPCID 20MG IV Q12H, CONTINUE TO MONTIOR (2) Abdominal pain Status: Acute Qualifiers: Abdominal location: epigastric Qualified Code(s): R10.13 - Epigastric pain Plan: MRCP TODAY, CONTINUE PPI THERAPY, MORPHINE 4MG IV Q6H PRN, CONTINUE TO MONITOR (3) Chest pain Status: Resolved Qualifiers: Chest pain type: precordial pain Qualified Code(s): R07.2 - Precordial pain Plan: CONTINUE TO MONITOR
[2017-10-18] MEDS: NS 1000 ML 1,000 ML IV SCH ×2 (01:07→08:15)
[2017-10-18 05:37] LABS: BASOPHILS % (AUTO) 0.4 % (0.2-1.0); EOSINOPHILS # (AUTO) 0.1 x10^3/uL (0.0-0.2); EOSINOPHILS % (AUTO) 0.9 % (0.9-2.9); HEMATOCRIT 34.9 % (36.0-47.0); HEMOGLOBIN 11.8 g/dL (12.0-16.0); LYMPHOCYTES # (AUTO) 2.4 X10^3/uL (1.3-2.9); LYMPHOCYTES % (AUTO) 27.4 % (21.0-51.0); MEAN CORPUSCULAR HEMOGLOBIN 28.1 pg (27.0-34.0); MEAN CORPUSCULAR HGB CONC 33.8 g/dL (33.0-35.0); MEAN CORPUSCULAR VOLUME 83.2 fL (80.0-100.0); MONOCYTES # (AUTO) 0.6 x10^3/uL (0.3-0.8); MONOCYTES % (AUTO) 7.1 % (0.0-13.0); NEUTROPHILS # (AUTO) 5.7 x10^3/uL (2.2-4.8); NEUTROPHILS % (AUTO) 64.2 % (42.0-75.0); PLATELET COUNT 168 X10^3/uL (150.0-450.0); RED BLOOD COUNT 4.19 X10^6/uL (3.5-5.4); RED CELL DISTRIBUTION WIDTH 13.6 % (11.6-16.5); WHITE BLOOD COUNT 8.9 X10^3/uL (3.6-10.0)
[2017-10-18 05:52] LABS: ALANINE AMINOTRANSFERASE 208 Units/L (12-78); ALBUMIN 2.9 g/dL (3.4-5.0); ALKALINE PHOSPHATASE 52 Units/L (46-116); ASPARTATE AMINO TRANSFERASE 22 Units/L (15-37); BLOOD UREA NITROGEN 13 mg/dL (7-18); CALCIUM 7.3 mg/dL (8.5-10.1); CARBON DIOXIDE 29.6 mmol/L (21-32); CHLORIDE 106 mmol/L (98-107); COR CA(FOR HYPOALB) 8.2 mg/dL (8.5-10.1); CREATININE 1.09 mg/dL (0.55-1.02); SODIUM 142 mmol/L (136-145); TOTAL PROTEIN 5.7 g/dL (6.4-8.2); eGFR BLACK RACES > 60 (>60); eGFR NON BLACK RACES 60 (>60)
[2017-10-18] MEDS: PROTONIX INJ 40 MG VIAL IVP SCH (08:15)
[2017-10-18] MEDS: PEPCID 20 MG IV PREMIX* 20 MG/50 ML BAG IV SCH (08:15)
[2017-10-18] MEDS: ASPIRIN PO SCH (08:15)
[2017-10-18 08:49] VITALS: BP 110/57
[2017-10-20 21:46] LABS: HEPATITIS A ANTIBODY IGM Negative (Negative)
[2017-10-21 06:13] LABS: HEPATITIS B CORE IGM Negative (Negative); HEPATITIS B SURFACE ANTIGEN Negative (Negative)
== END 2017-10-18 10:50 | disposition home or self-care (01) | DRG 313 ==
LOC: ER 14:18 → MED/SURG 15:28 → UNDOADMOB 15:28 → MED/SURG 15:59 → OBSVTOIN 10-15 09:00
PROVIDERS: ADMIT Internal Medicine; ATTEND Internal Medicine
DX: R07.2 Precordial pain (principal); B96.81 Helicobacter pylori [H. pylori] as the cause of diseases classified elsewhere; R06.02 Shortness of breath; M79.602 Pain in left arm; R10.84 Generalized abdominal pain; R11.2 Nausea with vomiting, unspecified; R94.5 Abnormal results of liver function studies; R53.1 Weakness
CPT/HCPCS: 36415; 71045; 74177; 74181; 80053; 80061; 80074; 82150; 82550; 82553; 83690; 83735; 84484; 85025; 85378; 86677; 93005; 94760; 96365; 99284; A4222; C9113; S0028; J2270; J2405; J7506

== ENCOUNTER 2017-10-25 15:19 | Emergency (ER) | payer SELFPAY ==
[2017-10-25 15:23] VITALS: BMI 37.5
--- NOTE | 2017-10-25 16:56 | ED.ABDFE ---
HPI - Time seen Time seen: 14:40 - PCP Primary Care Physician: Stanley ANDUJAR - Complaint Chief Complaint Doctors Comments: Patient reports that she was admitted to the hospital on last week . She had a follow up appointment with her pcp but told her she had noticed bright red blood with BM. She admits to H pylori gastritis on pepcid bid. Chief Complaint:: PT. C/O ABDOMINAL PAIN AND BLOOD IN STOOL. PT. NOTICED THE BLOOD THIS MORNING, STATING IT WAS BRIGHT RED. PT. C/O NAUSEA WELL. PT. WAS ADMITTED TO HOSPITAL ON 10/13/17 WITH H.PYLORI AND ELEVATED LIVER ENZYMES. - Source History Provided: Patient - Mode of arrival Mode of Arrival: Ambulatory - Timing Onset of Chief Complaint: 10/25/17 PMH - PMH Past Medical History: Yes Past Medical History: GERD Past Surgical History: Yes Surgical History: Appendectomy, Cholecystectomy, Tonsillectomy Past Surgical History Comment: UMBILICAL HERNIA REPAIR - Family History History of Family Medical Conditions: Yes Family Medical History: Diabetes Mellitus, Hypertension - Social History Does patient currently use any type of tobacco product: No Have you used tobacco products in the last 12 months: No Type of Tobacco Use: None Does any household member use tobacco: No Alcohol Use: None Do you use any recreational Drugs:: No Lives With: Family Lives Where: Home - infectious screening In the last 2 months have you had wt loss of >10#?: NO Have you had fever, night sweats or hemotysis?: No Have you traveled outside the country in the last 6 months?: No Isolation: Standard ROS - Review of Systems Eyes: No Symptoms Reported ENTM: No Symptoms Reported Respiratoy: No Symptoms Reported Cardiovascular: No Symptoms Reported Gastrointestinal/Abdominal: No Symptoms Reported Genitourinary: No Symptoms Reported Neurological: No Symptoms Reported Musculoskeletal: No Symptoms Reported Integumentary: No Symptoms Reported Hematologic/Lymphatic: No Symptoms Reported Endocrine: No Symptoms Reported Psychiatric: No Symptoms Reported All Other Systems: Reviewed and Negative PE - Vital Signs Vitals: Temperature 98.4 F Pulse Rate 87 Respiratory Rate 18 Blood Pressure [Left Arm] 110/57 Blood Pressure [Right Arm] 116/64 Blood Pressure 119/73 O2 Sat by Pulse Oximetry 98 - General Limitations: No Limitations General Appearance: Alert - Head Head Exam: Normal Inspection, Atraumatic - Eyes Eye exam: Normal Appearance, PERRL, EOMI - ENT ENT Exam: Normal Exam - Neck Neck Exam: Normal Inspection, Full ROM - Chest Chest Inspection: Normal Inspection, Symmetric Chest Wall Rise - Respiratory Respiratory Exam: Normal Lung Sounds Bilat Respiratory Exam: Bilateral Clear to Auscultation - Cardiovascular Cardiovascular Exam: Regular Rate, Normal Rhythm - Abdominal Exam Abdominal Exam: Normal Inspection, Hyperactive Bowel Sounds Abdominal Tenderness: negative: RUQ, RLQ, LUQ, LLQ, Epigastrium, Suprapubic, Diffuse, Mild, Moderate, Severe, Other - Rectal Rectal Exam: Normal Inspection (by nurse) - Back Back Exam: Normal Inspection - Extremeties Extremities Exam: Normal Inspection, Full ROM - External Exam: Female: Deferred : Speculum Exam (Female): Deferred : Bimanual Exam (female): Deferred - Neurologic Neurological Exam: Alert, Oriented X3, CN II-XII Intact - Psychiatric Psychiatric Exam: Normal Affect - Skin Skin Exam: Warm, Dry, Intact Course - Reevaluation 1st: Improved - Education/Counseling Educated On: Treatment, Diagnosis ROR - Labs Reviewed Laboratory Results Reviewed?: Yes (Hemocult negative; 10/13/17 H pylori positive) Result Diagrams: 10/25/17 17:33 10/25/17 17:33 Laboratory: WBC 10.8 X10^3/uL (3.6-10.0) H 10/25/17 17:33 RBC 5.12 X10^6/uL (3.5-5.4) 10/25/17 17:33 Hgb 14.3 g/dL (12.0-16.0) 10/25/17 17:33 Hct 42.2 % (36.0-47.0) 10/25/17 17:33 MCV 82.5 fL (80.0-100.0) 10/25/17 17:33 MCH 28.0 pg (27.0-34.0) 10/25/17 17:33 MCHC 33.9 g/dL (33.0-35.0) 10/25/17 17:33 RDW 13.8 % (11.6-16.5) 10/25/17 17:33 Plt Count 199 X10^3/uL (150.0-450.0) 10/25/17 17:33 MPV 9.7 fL (7.4-11.0) 10/25/17 17:33 Neut % (Auto) 65.6 % (42.0-75.0) 10/25/17 17:33 Lymph % (Auto) 25.4 % (21.0-51.0) 10/25/17 17:33 [place] % (Auto) 7.6 % (0.0-13.0) 10/25/17 17:33 Eos % (Auto) 0.9 % (0.9-2.9) 10/25/17 17:33 Baso % (Auto) 0.5 % (0.2-1.0) 10/25/17 17:33 Neut # (Auto) 7.1 x10^3/uL (2.2-4.8) H 10/25/17 17:33 Lymph # (Auto) 2.7 X10^3/uL (1.3-2.9) 10/25/17 17:33 [place] # (Auto) 0.8 x10^3/uL (0.3-0.8) 10/25/17 17:33 Eos # (Auto) 0.1 x10^3/uL (0.0-0.2) 10/25/17 17:33 Baso # (Auto) 0.1 X10^3/uL (0.0-0.1) 10/25/17 17:33 Absolute Nucleated RBC 0.0 /100WBC 10/25/17 17:33 Sodium 139 mmol/L (136-145) 10/25/17 17:33 Corrected Sodium TNP 10/25/17 17:33 Potassium 3.9 mmol/L (3.5-5.1) 10/25/17 17:33 Chloride 103 mmol/L (98-107) 10/25/17 17:33 Carbon Dioxide 26.7 mmol/L (21-32) 10/25/17 17:33 BUN 16 mg/dL (7-18) 10/25/17 17:33 Creatinine 1.12 mg/dL (0.55-1.02) H 10/25/17 17:33 Est GFR (MDRD) Af Amer > 60 (>60) 10/25/17 17:33 Est GFR (MDRD) Non-Af 58 (>60) L 10/25/17 17:33 Glucose 88 mg/dL (65-99) 10/25/17 17:33 Calcium 8.8 mg/dL (8.5-10.1) 10/25/17 17:33 Corrected Calcium TNP 10/25/17 17:33 Total Bilirubin 0.20 mg/dL (0.2-1.0) 10/25/17 17:33 AST 16 Units/L (15-37) 10/25/17 17:33 ALT 51 Units/L (12-78) 10/25/17 17:33 Alkaline Phosphatase 64 Units/L (46-116) 10/25/17 17:33 Total Protein 8.0 g/dL (6.4-8.2) 10/25/17 17:33 Albumin 4.2 g/dL (3.4-5.0) 10/25/17 17:33 Globulin 3.8 g/dL (2.5-4.5) 10/25/17 17:33 Albumin/Globulin Ratio 1.1 Ratio (1.1-2.1) 10/25/17 17:33 Specimen Type Random urine 10/25/17 16:49 Urine Color Straw (YELLOW) 10/25/17 16:49 Urine Appearance Clear (CLEAR) 10/25/17 16:49 Urine pH 6.5 (5.0 - 8.0) 10/25/17 16:49 Ur Specific [place] 1.010 (1.000-1.030) 10/25/17 16:49 Urine Protein Negative (NEGATIVE) 10/25/17 16:49 Urine Glucose (UA) Negative (NEGATIVE) 10/25/17 16:49 Urine Ketones Negative (NEGATIVE) 10/25/17 16:49 Urine Occult Blood 1+ (NEGATIVE) 10/25/17 16:49 Urine Nitrite Negative (NEGATIVE) 10/25/17 16:49 Urine Bilirubin Negative (NEGATIVE) 10/25/17 16:49 Urine Urobilinogen Normal (NORMAL) 10/25/17 16:49 Ur Leukocyte Esterase 1+ (NEGATIVE) 10/25/17 16:49 Urine RBC Rare /HPF (NONE SEEN) 10/25/17 16:49 Urine WBC Rare /HPF (NONE SEEN) 10/25/17 16:49 Ur Squamous Epith Cells Many /HPF (NEGATIVE) 10/25/17 16:49 Urine Bacteria Trace /HPF (NEGATIVE) 10/25/17 16:49 Ur Culture Indicated? No/not indicated 10/25/17 16:49 Stool Description Fob tube 10/25/17 16:49 Stl Occult Blood (IFOB) Negative (NEGATIVE) 10/25/17 16:49 - Diagnosis Discharge Problem: Helicobacter pylori (H. pylori) infection - Discharge Plan Condition: Stable - Follow ups/Referrals Follow ups/Referrals: RAMESH ANDUJAR [Primary Care Provider] - 3 days - Instructions
[2017-10-25 17:15] LABS: BILIRUBIN,URINE NEGATIVE (NEGATIVE); BLOOD/HEMOGLOBIN,URINE 1+ (NEGATIVE); GLUCOSE, URINE NEGATIVE (NEGATIVE); KETONES,URINE NEGATIVE (NEGATIVE); LEUKOCYTE ESTERASE ,URINE 1+ (NEGATIVE); NITRITES,URINE NEGATIVE (NEGATIVE); PH,URINE 6.5 (5.0 - 8.0); PROTEIN,URINE NEGATIVE (NEGATIVE); UROBILINOGEN,URINE NORMAL (NORMAL)
[2017-10-25 17:22] LABS: APPEARANCE,URINE CLEAR (CLEAR); COLOR,URINE STRAW (YELLOW)
[2017-10-25 17:23] LABS: RBC,URINE RARE /HPF (NONE SEEN); SQUAMOUS EPITHELIAL CELL,UR MANY /HPF (NEGATIVE)
[2017-10-25 17:24] LABS: BACTERIA,URINE TRACE /HPF (NEGATIVE)
[2017-10-25 17:47] LABS: BASOPHILS # (AUTO) 0.1 X10^3/uL (0.0-0.1); BASOPHILS % (AUTO) 0.5 % (0.2-1.0); EOSINOPHILS # (AUTO) 0.1 x10^3/uL (0.0-0.2); EOSINOPHILS % (AUTO) 0.9 % (0.9-2.9); HEMATOCRIT 42.2 % (36.0-47.0); HEMOGLOBIN 14.3 g/dL (12.0-16.0); LYMPHOCYTES # (AUTO) 2.7 X10^3/uL (1.3-2.9); LYMPHOCYTES % (AUTO) 25.4 % (21.0-51.0); MEAN CORPUSCULAR HGB CONC 33.9 g/dL (33.0-35.0); MEAN CORPUSCULAR VOLUME 82.5 fL (80.0-100.0); MEAN PLATELET VOLUME 9.7 fL (7.4-11.0); MONOCYTES # (AUTO) 0.8 x10^3/uL (0.3-0.8); MONOCYTES % (AUTO) 7.6 % (0.0-13.0); NEUTROPHILS # (AUTO) 7.1 x10^3/uL (2.2-4.8); NEUTROPHILS % (AUTO) 65.6 % (42.0-75.0); PLATELET COUNT 199 X10^3/uL (150.0-450.0); RED BLOOD COUNT 5.12 X10^6/uL (3.5-5.4); RED CELL DISTRIBUTION WIDTH 13.8 % (11.6-16.5); WHITE BLOOD COUNT 10.8 X10^3/uL (3.6-10.0)
[2017-10-25 17:53] LABS: ALANINE AMINOTRANSFERASE 51 Units/L (12-78); ALBUMIN 4.2 g/dL (3.4-5.0); ALKALINE PHOSPHATASE 64 Units/L (46-116); ASPARTATE AMINO TRANSFERASE 16 Units/L (15-37); BLOOD UREA NITROGEN 16 mg/dL (7-18); CALCIUM 8.8 mg/dL (8.5-10.1); CARBON DIOXIDE 26.7 mmol/L (21-32); CHLORIDE 103 mmol/L (98-107); CREATININE 1.12 mg/dL (0.55-1.02); SODIUM 139 mmol/L (136-145); eGFR BLACK RACES > 60 (>60); eGFR NON BLACK RACES 58 (>60)
[2017-10-25 19:27] VITALS: BP 110/71
== END 2017-10-25 19:27 | disposition home or self-care (01) ==
LOC: ER 15:32
DX: R10.84 Generalized abdominal pain (principal); B96.81 Helicobacter pylori [H. pylori] as the cause of diseases classified elsewhere
CPT/HCPCS: 36415; 80053; 81001; 82274; 85025; 99282

== ENCOUNTER 2017-11-18 15:18 | Emergency (ER) | payer SELFPAY ==
[2017-11-18 15:21] VITALS: BP 124/75; BMI 37.8
[2017-11-18 16:23] LABS: BASOPHILS % (AUTO) 0.5 % (0.2-1.0); EOSINOPHILS # (AUTO) 0.1 x10^3/uL (0.0-0.2); EOSINOPHILS % (AUTO) 1.2 % (0.9-2.9); HEMATOCRIT 38.5 % (36.0-47.0); HEMOGLOBIN 13.1 g/dL (12.0-16.0); LYMPHOCYTES # (AUTO) 2.5 X10^3/uL (1.3-2.9); LYMPHOCYTES % (AUTO) 25.7 % (21.0-51.0); MEAN CORPUSCULAR HEMOGLOBIN 28.1 pg (27.0-34.0); MEAN CORPUSCULAR HGB CONC 34.1 g/dL (33.0-35.0); MEAN CORPUSCULAR VOLUME 82.5 fL (80.0-100.0); MEAN PLATELET VOLUME 9.4 fL (7.4-11.0); MONOCYTES # (AUTO) 0.7 x10^3/uL (0.3-0.8); MONOCYTES % (AUTO) 7.1 % (0.0-13.0); NEUTROPHILS # (AUTO) 6.5 x10^3/uL (2.2-4.8); NEUTROPHILS % (AUTO) 65.5 % (42.0-75.0); PLATELET COUNT 195 X10^3/uL (150.0-450.0); RED BLOOD COUNT 4.67 X10^6/uL (3.5-5.4); RED CELL DISTRIBUTION WIDTH 13.9 % (11.6-16.5); WHITE BLOOD COUNT 9.8 X10^3/uL (3.6-10.0)
[2017-11-18 16:38] LABS: ALANINE AMINOTRANSFERASE 37 Units/L (12-78); ALBUMIN 3.9 g/dL (3.4-5.0); ALKALINE PHOSPHATASE 57 Units/L (46-116); ASPARTATE AMINO TRANSFERASE 16 Units/L (15-37); BLOOD UREA NITROGEN 11 mg/dL (7-18); CALCIUM 8.6 mg/dL (8.5-10.1); CARBON DIOXIDE 29.3 mmol/L (21-32); CHLORIDE 103 mmol/L (98-107); CREATININE 1.11 mg/dL (0.55-1.02); SODIUM 140 mmol/L (136-145); TOTAL PROTEIN 7.5 g/dL (6.4-8.2); eGFR BLACK RACES > 60 (>60); eGFR NON BLACK RACES 58 (>60)
--- NOTE | 2017-11-18 17:23 | DR.GENAD ---
HPI - PCP Primary Care Physician: carlos - Complaint/Symptoms Chief Complaint:: patient c/o pain in bilateral legs with a knot and bruising to right lower leg. Patient stated "The school nurse told me I could have a blood clot." Mild swelling and bruising noted. - Source History Provided: Patient - Mode of Arrival Mode of Arrival: Ambulatory - Timing Onset of Chief Complaint: 11/18/17 PMH - PMH Past Medical History: Yes Past Medical History: GERD Past Surgical History: Yes Surgical History: Appendectomy, Cholecystectomy, Tonsillectomy - Family History History of Family Medical Conditions: Yes Family Medical History: Diabetes Mellitus, Hypertension - Social History Does patient currently use any type of tobacco product: No Have you used tobacco products in the last 12 months: No Type of Tobacco Use: None Does any household member use tobacco: No Do you use any recreational Drugs:: No Lives With: Family Lives Where: Home - infectious screening In the last 2 months have you had wt loss of >10#?: NO Have you had fever, night sweats or hemotysis?: No Have you traveled outside the country in the last 6 months?: No Isolation: Standard ROS - Review of Systems Constitutional: No Symptoms Reported Eyes: No Symptoms Reported ENTM: No Symptoms Reported Respiratoy: No Symptoms Reported. negative: Short of Breath Cardiovascular: No Symptoms Reported Gastrointestinal/Abdominal: No Symptoms Reported Genitourinary: No Symptoms Reported Neurological: No Symptoms Reported Musculoskeletal: Right, Left, Leg Integumentary: Wound (bruise rt lower leg) Hematologic/Lymphatic: Easy Bleeding (not dx with hemophilia) Endocrine: No Symptoms Reported Psychiatric: No Symptoms Reported All Other Systems: Reviewed and Negative PE - Vital Signs Vitals: Temperature 98.6 F Pulse Rate 103 Respiratory Rate 20 Blood Pressure [Left Arm] 110/71 Blood Pressure [Right Arm] 116/64 Blood Pressure 124/75 O2 Sat by Pulse Oximetry 98 - General Limitations: No Limitations General Appearance: Alert, In No Apparent Distress - Head Head Exam: Normal Inspection - Eyes Eye exam: Normal Appearance - ENT ENT Exam: Normal Exam - Neck Neck Exam: Normal Inspection, Full ROM, Trachea Midline - Chest Chest Inspection: Normal Inspection, Symmetric Chest Wall Rise. negative: Tenderness - Respiratory Respiratory Exam: Normal Lung Sounds Bilat. negative: Chest Wall Tenderness Respiratory Exam: Bilateral Clear to Auscultation - Cardiovascular Cardiovascular Exam: Regular Rate, Normal Rhythm - Abdominal Exam Abdominal Exam: Normal Inspection, Normal Bowel Sounds, Soft. negative: Tenderness - Extremities Extremities Exam: Normal Inspection, Full ROM, Tenderness, Normal Capillary Refill, Other (2x2cm bruise rt lat calf. Homans neg bilat). negative: Edema, Calf Tenderness - Back Back Exam: Full ROM - Neurologic Neurological Exam: Alert, Oriented X3 - Psychiatric Psychiatric Exam: Normal Affect, Normal Mood - Skin Skin Exam: Warm, Dry, Intact ROR - Labs Reviewed Laboratory Results Reviewed?: Yes (ddimer neg) Result Diagrams: 11/18/17 16:11 11/18/17 16:11 Laboratory: WBC 9.8 X10^3/uL (3.6-10.0) 11/18/17 16:11 RBC 4.67 X10^6/uL (3.5-5.4) 11/18/17 16:11 Hgb 13.1 g/dL (12.0-16.0) 11/18/17 16:11 Hct 38.5 % (36.0-47.0) 11/18/17 16:11 MCV 82.5 fL (80.0-100.0) 11/18/17 16:11 MCH 28.1 pg (27.0-34.0) 11/18/17 16:11 MCHC 34.1 g/dL (33.0-35.0) 11/18/17 16:11 RDW 13.9 % (11.6-16.5) 11/18/17 16:11 Plt Count 195 X10^3/uL (150.0-450.0) 11/18/17 16:11 MPV 9.4 fL (7.4-11.0) 11/18/17 16:11 Neut % (Auto) 65.5 % (42.0-75.0) 11/18/17 16:11 Lymph % (Auto) 25.7 % (21.0-51.0) 11/18/17 16:11 [place] % (Auto) 7.1 % (0.0-13.0) 11/18/17 16:11 Eos % (Auto) 1.2 % (0.9-2.9) 11/18/17 16:11 Baso % (Auto) 0.5 % (0.2-1.0) 11/18/17 16:11 Neut # (Auto) 6.5 x10^3/uL (2.2-4.8) H 11/18/17 16:11 Lymph # (Auto) 2.5 X10^3/uL (1.3-2.9) 11/18/17 16:11 [place] # (Auto) 0.7 x10^3/uL (0.3-0.8) 11/18/17 16:11 Eos # (Auto) 0.1 x10^3/uL (0.0-0.2) 11/18/17 16:11 Baso # (Auto) 0.0 X10^3/uL (0.0-0.1) 11/18/17 16:11 Absolute Nucleated RBC 0.0 /100WBC 11/18/17 16:11 D-Dimer < 100 ng/mL (0-400) 11/18/17 16:11 Sodium 140 mmol/L (136-145) 11/18/17 16:11 Corrected Sodium TNP 11/18/17 16:11 Potassium 3.8 mmol/L (3.5-5.1) 11/18/17 16:11 Chloride 103 mmol/L (98-107) 11/18/17 16:11 Carbon Dioxide 29.3 mmol/L (21-32) 11/18/17 16:11 BUN 11 mg/dL (7-18) 11/18/17 16:11 Creatinine 1.11 mg/dL (0.55-1.02) H 11/18/17 16:11 Est GFR (MDRD) Af Amer > 60 (>60) 11/18/17 16:11 Est GFR (MDRD) Non-Af 58 (>60) L 11/18/17 16:11 Glucose 84 mg/dL (65-99) 11/18/17 16:11 Calcium 8.6 mg/dL (8.5-10.1) 11/18/17 16:11 Corrected Calcium TNP 11/18/17 16:11 Total Bilirubin 0.20 mg/dL (0.2-1.0) 11/18/17 16:11 AST 16 Units/L (15-37) 11/18/17 16:11 ALT 37 Units/L (12-78) 11/18/17 16:11 Alkaline Phosphatase 57 Units/L (46-116) 11/18/17 16:11 Total Protein 7.5 g/dL (6.4-8.2) 11/18/17 16:11 Albumin 3.9 g/dL (3.4-5.0) 11/18/17 16:11 Globulin 3.6 g/dL (2.5-4.5) 11/18/17 16:11 Albumin/Globulin Ratio 1.1 Ratio (1.1-2.1) 11/18/17 16:11 - Diagnosis Discharge Problem: Leg pain, bilateral - Discharge Plan Disposition: HOME, SELF-CARE Condition: Stable - Follow ups/Referrals Follow ups/Referrals: RAMESH ANDUJAR [Primary Care Provider] - 3 days - Instructions Instructions: Contusion
== END 2017-11-18 17:37 | disposition home or self-care (01) ==
LOC: ER 15:26
DX: M79.604 Pain in right leg (principal); M79.605 Pain in left leg
CPT/HCPCS: 36415; 80053; 85025; 85378; 99282

== ENCOUNTER 2017-12-16 13:33 | Emergency (ER) | payer SELFPAY ==
[2017-12-16 13:38] VITALS: BP 121/75; BMI 37.8
--- NOTE | 2017-12-16 14:26 | DR.GENAD ---
HPI - PCP Primary Care Physician: CON - Complaint/Symptoms Chief Complaint Doctors Comments: Nose bleed x 2 today ( she awakened to blood on bedsheet and pillow and repeat bleed an hour later). She states she had palpitations earlier today also but without chest pain or dyspnea. Her other c/ o is generalised weakness x 1 week. Chief Complaint:: NOSE BLEED, WEAKNESS, LEGS HURT, HEARTRACING - Nurses notes reviewed Nurses Notes Review: Yes - Source History Provided: Patient - Mode of Arrival Mode of Arrival: Ambulatory - Timing Onset of Chief Complaint: 12/16/17 PMH - PMH Past Medical History: Yes Past Medical History: GERD Past Surgical History: Yes Surgical History: Appendectomy, Cholecystectomy, Tonsillectomy Past Surgical History Comment: HERNIA REPAIR - Family History History of Family Medical Conditions: No Family Medical History: Diabetes Mellitus, Hypertension - Social History Does patient currently use any type of tobacco product: No Have you used tobacco products in the last 12 months: No Type of Tobacco Use: None Does any household member use tobacco: No Alcohol Use: None Do you use any recreational Drugs:: No Lives With: Family Lives Where: Home - infectious screening In the last 2 months have you had wt loss of >10#?: NO Have you had fever, night sweats or hemotysis?: No Have you traveled outside the country in the last 6 months?: No Isolation: Standard ROS - Review of Systems Constitutional: No Symptoms Reported Eyes: No Symptoms Reported ENTM: No Symptoms Reported Respiratoy: No Symptoms Reported Cardiovascular: No Symptoms Reported Gastrointestinal/Abdominal: No Symptoms Reported Genitourinary: No Symptoms Reported Neurological: No Symptoms Reported Musculoskeletal: No Symptoms Reported Integumentary: No Symptoms Reported Hematologic/Lymphatic: No Symptoms Reported Endocrine: No Symptoms Reported Psychiatric: No Symptoms Reported All Other Systems: Reviewed and Negative PE - Vital Signs Vitals: Temperature 98.6 F Pulse Rate 90 Respiratory Rate 20 Blood Pressure [Left Arm] 110/71 Blood Pressure [Right Arm] 116/64 Blood Pressure 121/75 O2 Sat by Pulse Oximetry 100 - General Limitations: No Limitations General Appearance: Alert, In No Apparent Distress - Head Head Exam: Normal Inspection - Eyes Eye exam: Normal Appearance - ENT External Ear Exam: Normal External Inspection TM/Canal Exam: Bilateral Normal Nose Exam: Other (dry blood spot on the floor of her right nasal cavity, otherwise normal. the mucosal exam on the left nare is normal ) Mouth Exam: Normal Inspection Throat Exam: Normal Inspection - Neck Neck Exam: Normal Inspection, Full ROM - Chest Chest Inspection: Normal Inspection, Symmetric Chest Wall Rise - Respiratory Respiratory Exam: Normal Lung Sounds Bilat - Cardiovascular Cardiovascular Exam: Regular Rate, Normal Rhythm, +S1, +S2 - Abdominal Exam Abdominal Exam: Normal Inspection, Normal Bowel Sounds, Soft - Extremities Extremities Exam: Normal Inspection - Back Back Exam: Normal Inspection - Neurologic Neurological Exam: Alert, Oriented X3 - Psychiatric Psychiatric Exam: Normal Affect, Normal Mood - Skin Skin Exam: Warm, Dry, Intact, Normal Color Course - Reevaluation 1st: Resolved - Education/Counseling Education/Counseling: Patient, Education, Counseling Educated On: Treatment, Diagnosis, Prognosis, Needs for Follow Up ROR - Labs Reviewed Result Diagrams: 12/16/17 14:33 12/16/17 14:33 Laboratory: WBC 9.3 X10^3/uL (3.6-10.0) 12/16/17 14:33 RBC 4.74 X10^6/uL (3.5-5.4) 12/16/17 14:33 Hgb 13.5 g/dL (12.0-16.0) 12/16/17 14:33 Hct 39.3 % (36.0-47.0) 12/16/17 14:33 MCV 82.8 fL (80.0-100.0) 12/16/17 14:33 MCH 28.4 pg (27.0-34.0) 12/16/17 14:33 MCHC 34.3 g/dL (33.0-35.0) 12/16/17 14:33 RDW 13.8 % (11.6-16.5) 12/16/17 14:33 Plt Count 174 X10^3/uL (150.0-450.0) 12/16/17 14:33 MPV 9.3 fL (7.4-11.0) 12/16/17 14:33 Neut % (Auto) 73.2 % (42.0-75.0) 12/16/17 14:33 Lymph % (Auto) 19.6 % (21.0-51.0) L 12/16/17 14:33 Swisher % (Auto) 5.7 % (0.0-13.0) 12/16/17 14:33 Eos % (Auto) 1.0 % (0.9-2.9) 12/16/17 14:33 Baso % (Auto) 0.5 % (0.2-1.0) 12/16/17 14:33 Neut # (Auto) 6.8 x10^3/uL (2.2-4.8) H 12/16/17 14:33 Lymph # (Auto) 1.8 X10^3/uL (1.3-2.9) 12/16/17 14:33 Swisher # (Auto) 0.5 x10^3/uL (0.3-0.8) 12/16/17 14:33 Eos # (Auto) 0.1 x10^3/uL (0.0-0.2) 12/16/17 14:33 Baso # (Auto) 0.0 X10^3/uL (0.0-0.1) 12/16/17 14:33 Absolute Nucleated RBC 0.0 /100WBC 12/16/17 14:33 Sodium 141 mmol/L (136-145) 12/16/17 14:33 Corrected Sodium TNP 12/16/17 14:33 Potassium 3.8 mmol/L (3.5-5.1) 12/16/17 14:33 Chloride 105 mmol/L (98-107) 12/16/17 14:33 Carbon Dioxide 28.9 mmol/L (21-32) 12/16/17 14:33 BUN 14 mg/dL (7-18) 12/16/17 14:33 Creatinine 1.04 mg/dL (0.55-1.02) H 12/16/17 14:33 Est GFR (MDRD) Af Amer > 60 (>60) 12/16/17 14:33 Est GFR (MDRD) Non-Af > 60 (>60) 12/16/17 14:33 Glucose 110 mg/dL (65-99) H 12/16/17 14:33 Calcium 8.7 mg/dL (8.5-10.1) 12/16/17 14:33 Corrected Calcium TNP 12/16/17 14:33 Total Bilirubin 0.50 mg/dL (0.2-1.0) 12/16/17 14:33 AST 23 Units/L (15-37) 12/16/17 14:33 ALT 38 Units/L (12-78) 12/16/17 14:33 Alkaline Phosphatase 55 Units/L (46-116) 12/16/17 14:33 Total Protein 6.9 g/dL (6.4-8.2) 12/16/17 14:33 Albumin 3.6 g/dL (3.4-5.0) 12/16/17 14:33 Globulin 3.3 g/dL (2.5-4.5) 12/16/17 14:33 Albumin/Globulin Ratio 1.1 Ratio (1.1-2.1) 12/16/17 14:33 TSH 3rd Generation 1.620 uIU/mL (0.358-3.74) 12/16/17 14:33 - EKG Rate: 69 [place]: Normal Rhythm: NSR Block: None Hypertrophy: None ST: Normal - Diagnosis Discharge Problem: Right-sided nosebleed, Palpitations - Discharge Plan Disposition: 01 HOME, SELF-CARE Condition: Stable - Follow ups/Referrals Follow ups/Referrals: RAMESH ANDUJAR [Primary Care Provider] - 3 days - Instructions Instructions: Palpitations, [id number], Nosebleed, Adult, [id number]
[2017-12-16 14:41] LABS: BASOPHILS % (AUTO) 0.5 % (0.2-1.0); EOSINOPHILS # (AUTO) 0.1 x10^3/uL (0.0-0.2); HEMATOCRIT 39.3 % (36.0-47.0); HEMOGLOBIN 13.5 g/dL (12.0-16.0); LYMPHOCYTES # (AUTO) 1.8 X10^3/uL (1.3-2.9); LYMPHOCYTES % (AUTO) 19.6 % (21.0-51.0); MEAN CORPUSCULAR HEMOGLOBIN 28.4 pg (27.0-34.0); MEAN CORPUSCULAR HGB CONC 34.3 g/dL (33.0-35.0); MEAN CORPUSCULAR VOLUME 82.8 fL (80.0-100.0); MEAN PLATELET VOLUME 9.3 fL (7.4-11.0); MONOCYTES # (AUTO) 0.5 x10^3/uL (0.3-0.8); MONOCYTES % (AUTO) 5.7 % (0.0-13.0); NEUTROPHILS # (AUTO) 6.8 x10^3/uL (2.2-4.8); NEUTROPHILS % (AUTO) 73.2 % (42.0-75.0); PLATELET COUNT 174 X10^3/uL (150.0-450.0); RED BLOOD COUNT 4.74 X10^6/uL (3.5-5.4); RED CELL DISTRIBUTION WIDTH 13.8 % (11.6-16.5); WHITE BLOOD COUNT 9.3 X10^3/uL (3.6-10.0)
[2017-12-16 15:38] LABS: ALANINE AMINOTRANSFERASE 38 Units/L (12-78); ALBUMIN 3.6 g/dL (3.4-5.0); ALKALINE PHOSPHATASE 55 Units/L (46-116); ASPARTATE AMINO TRANSFERASE 23 Units/L (15-37); BLOOD UREA NITROGEN 14 mg/dL (7-18); CALCIUM 8.7 mg/dL (8.5-10.1); CARBON DIOXIDE 28.9 mmol/L (21-32); CHLORIDE 105 mmol/L (98-107); CREATININE 1.04 mg/dL (0.55-1.02); SODIUM 141 mmol/L (136-145); TOTAL PROTEIN 6.9 g/dL (6.4-8.2); eGFR BLACK RACES > 60 (>60); eGFR NON BLACK RACES > 60 (>60)
== END 2017-12-16 16:01 | disposition home or self-care (01) ==
LOC: ER 13:46
DX: R04.0 Epistaxis (principal); R00.2 Palpitations
CPT/HCPCS: 36415; 80053; 84443; 85025; 93005; 93010; 99282; 99283